=== PATIENT | female | born 1965 | race African-American/Black ===

== ENCOUNTER 2019-12-07 01:06 | Emergency (ER) | payer OTHER ==
--- OUTSIDE RECORDS SUMMARY | 2019-12-07 01:09 | XMS REPORT | Clinical Summary ---
:1965 Author Organization [facility] Address [address] [place] [address] Care Team Providers Name Role Phone Unknown Primary Care Provider Unavailable Allergies No Known Allergies Medications Medication Sig Dispensed Refills Start Date End Date Status lisinopril Take 20 mg by mouth 0 Active (PRINIVIL,ZESTRIL) 20 daily. mg tablet HYDROcodone-acetamino Take 1 tablet by 0 Active phen (NORCO) 10-325 mouth every 6 (six) mg per tablet hours as needed for moderate pain. ALPRAZolam (XANAX) 1 Take 1 mg by mouth 0 Active MG tablet 2 (two) times a day as needed. metoprolol tartrate Take 50 mg by mouth 0 Active (LOPRESSOR) 50 mg daily. tablet Active Problems Problem Noted Date Cerebrovascular accident (CVA) 07/24/2017 Chest pain 01/05/2017 Social History Tobacco Use Types Packs/Day Years Used Date Current Every Day Smoker Cigarettes 0.25 Smokeless Tobacco: Never Used Tobacco Cessation: Ready to Quit: No; Co unseling Given: Yes Alcohol Use Drinks/Week oz/Week Comments No Sex Assigned at Date Recorded Not on file Job Start Date Occupation Industry Not on file Not on file Not on file Travel History Travel Start Travel End No recent travel history available. Last Filed Vital Signs Not on file Plan of Treatment Health Maintenance Due Date Last Done Comments CERVICAL CANCER SCREENING 1988 BREAST CANCER SCREENING 2017 COLONOSCOPY SCREENING 2017 SHINGLES VACCINES (#1) 2017 INFLUENZA VACCINE 01/12/2020 Results Not on fileafter 12/06/2018 Advance Directives For more information, please contact: [phone] Type Date Recorded Patient Edi Consultant Explanati on Advance Directives, Living Will 01/04/2017 8:57 PM and Medical Power of Silviculturist
[2019-12-07] MEDS ORDERED: PANTOPRAZOLE 40 MG INJ ONE (02:16)
[2019-12-07] MEDS ORDERED: NA CHLORIDE 0.9% 1,000 ML ONE (02:16)
[2019-12-07] MEDS ORDERED: ONDANSETRON 4 MG/2 ML VIAL ONE ×2 (02:16→03:11)
[2019-12-07 02:36] LABS: Absolute Lymphocytes (CBC) 3.5 K/uL (0.7-4.9); Basophils % 0.9 % (0-1.3); Hematocrit 40.5 % (36.0-45.0); Lymphocytes % 37.8 % (15.3-44.8); MPV 9.4 fL (7.6-11.3)
[2019-12-07 02:46] LABS: Albumin 3.9 g/dL (3.4-5.0); Bilirubin Direct 0.1 mg/dL (0-0.2); Bilirubin Total 0.4 mg/dL (0.2-1.0); Potassium 4.1 mmol/L (3.5-5.1); Protein, Total 7.9 g/dL (6.4-8.2)
[2019-12-07] MEDS ORDERED: MORPHINE 4 MG/ML SYR ONE (03:59)
--- NOTE | 2019-12-07 04:05 | EDPHYS ---
Physician Documentation [facility] Name: Tyrese Alberto Age: 54 yrs Sex: Female : 1965 Arrival Date: 12/07/2019 Time: 01:09 Bed 5 Private MD: ED Physician Tashi Molina HPI: 12/06 03:33 This 54 yrs old Black Female presents to ER via Ambulatory with complaints of Vomitting tw4 Blood. 03:33 The patient presents to the emergency department with vomiting, 2 times since the onset tw4 of symptoms, described as blood streaked, bright red blood. Onset: The symptoms/episode began/occurred today. Possible causes: unknown. The symptoms are aggravated by nothing. The symptoms are alleviated by nothing. The patient has not experienced similar symptoms in the past. 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 - Social history:: Smoking status: Patient reports the use of cigarette tobacco products, smokes one-half pack cigarettes per day. ROS: 03:33 Constitutional: Negative for fever, chills, and weight loss, Eyes: Negative for injury, tw4 pain, redness, and discharge, Cardiovascular: Negative for chest pain, palpitations, and edema, Respiratory: Negative for shortness of breath, cough, wheezing, and pleuritic chest pain, Back: Negative for injury and pain, MS/Extremity: Negative for injury and deformity, Skin: Negative for injury, rash, and discoloration, Neuro: Negative for headache, weakness, numbness, tingling, and seizure. 03:33 Abdomen/GI: Positive for abdominal pain, vomiting, abdominal cramps, abdominal distension, Negative for diarrhea, constipation, black/tarry stool, rectal pain, bowel incontinence. Exam: 03:33 Constitutional: This is a well developed, well nourished patient who is awake, alert, tw4 and in no acute distress. Head/Face: Normocephalic, atraumatic. Chest/axilla: Normal chest wall appearance and motion. Nontender with no deformity. No lesions are appreciated. Cardiovascular: Regular rate and rhythm with a normal S1 and S2. No gallops, murmurs, or rubs. Normal PMI, no JVD. No pulse deficits. Respiratory: Lungs have equal breath sounds bilaterally, clear to auscultation and percussion. No rales, rhonchi or wheezes noted. No increased work of breathing, no retractions or nasal flaring. Back: No spinal tenderness. No costovertebral tenderness. Full range of motion. Skin: Warm, dry with normal turgor. Normal color with no rashes, no lesions, and no evidence of cellulitis. MS/ Extremity: Pulses equal, no cyanosis. Neurovascular intact. Full, normal range of motion. Neuro: Awake and alert, GCS 15, oriented to person, place, time, and situation. Cranial nerves II-XII grossly intact. Motor strength 5/5 in all extremities. Sensory grossly intact. Cerebellar exam normal. Normal gait. 03:33 Abdomen/GI: Inspection: abdomen appears normal, Bowel sounds: diminished, Palpation: moderate abdominal tenderness, in the epigastric area. Vital Signs: 01:22 BP 166 / 87; Pulse 77; Resp 18; Temp 98.1(O); Pulse Ox 100% on R/A; Weight 77.11 kg lp1 (R); Height 4 ft. 11 in. (149.86 cm); Pain 7/10; 02:42 BP 143 / 98; Pulse 65; Resp 18; Pulse Ox 100% on R/A; rv 03:45 BP 141 / 85; Pulse 69; Resp 19; Pulse Ox 99% ; rr5 04:24 BP 135 / 85; Pulse 65; Resp 16; Temp 97.5; Pulse Ox 99% ; rr5 01:22 Body Mass Index 34.34 (77.11 kg, 149.86 cm) lp1 MDM: 03:33 Differential diagnosis: Nonspecific abd pain, gastritis, appendicitis. Data reviewed: tw4 vital signs, nurses notes. Data interpreted: Pulse oximetry: Interpretation: normal. 04:03 Data reviewed: lab test result(s), CBC, electrolytes. Counseling: I had a detailed tw4 discussion with the patient and/or guardian regarding: the historical points, exam findings, and any diagnostic results supporting the discharge/admit diagnosis, lab results. Special discussion: I discussed with the patient/guardian in detail that at this point there is no indication for admission to the hospital. It is understood, however, that if the symptoms persist or worsen the patient needs to return immediately for re-evaluation. 04:04 Patient medically screened. 12/06 01:18 Order name: Basic Metabolic Panel; Complete Time: 02:48 12/06 02:49 Interpretation: Normal except: CL 110; GLUC 110; GFR 80. 12/06 01:18 Order name: CBC with Diff; Complete Time: 02:48 12/06 02:49 Interpretation: Normal except: MCV 89.9. 12/06 01:18 Order name: Hepatic Function; Complete Time: 02:48 12/06 02:49 Interpretation: Normal except: GLOB 4.0; A/G 1.0. 12/06 01:18 Order name: Lipase; Complete Time: 02:48 12/06 02:49 Interpretation: Within normal limits: LIP 172. 12/06 02:48 Order name: CT Abd/Pelvis - IV Contrast Only 12/06 01:18 Order name: IV Saline Lock; Complete Time: 02:20 12/06 01:18 Order name: Labs collected and sent; Complete Time: 02:20 Administered Medications: 02:19 Drug: ProTONIX 40 mg Route: IVP; Site: left forearm; rv 03:20 Follow up: Response: No adverse reaction rr5 02:20 Drug: Zofran (Ondansetron) 4 mg Route: IVP; Site: left forearm; rv 03:20 Follow up: Response: No adverse reaction rr5 02:20 Drug: NS 0.9% 1000 ml Route: IV; Rate: 1 bolus; Site: left forearm; rv 04:20 Follow up: Response: No adverse reaction; IV Status: Order to discontinue infusion; IV rr5 Intake: 400ml 03:55 Drug: morphine 4 mg {Note: rass 0.} Route: IVP; Site: left antecubital; rr5 04:20 Follow up: Response: No adverse reaction; RASS: Alert and Calm (0) rr5 Disposition: 12/07/19 04:04 Discharged to Home. Impression: Gastritis, unspecified, with bleeding, Dental caries. - Condition is Stable. - Discharge Instructions: Dental Pain, Gastritis, Adult, Gastrointestinal Bleeding. - Prescriptions for Protonix 40 mg Oral Tablet - take 1 tablet by ORAL route once daily; 30 tablet. Tylenol- Codeine #3 300-30 mg Oral Tablet - take 2 tablet by ORAL route every 6 hours As needed; 6 tablet. - Medication Reconciliation Form, Thank You Letter, Antibiotic Education, Prescription Opioid Use form. - Follow up: Private Physician; When: Upon discharge from the Emergency Department; Reason: Recheck today's complaints, Continuance of care, Re-evaluation by your physician. Follow up: Gabriele Rondon MD; When: Upon discharge from the Emergency Department; Reason: Recheck today's complaints, Continuance of care, Re-evaluation by your physician. Follow up: Karan Horta MD; When: Upon discharge from the Emergency Department; Reason: Recheck today's complaints, Continuance of care, Re-evaluation by your physician. Follow up: Hakeem Ramos MD; When: Upon discharge from the Emergency Department; Reason: Recheck today's complaints, Continuance of care, Re-evaluation by your physician. Follow up: Danie Stokes MD; When: Upon discharge from the Emergency Department; Reason: Recheck today's complaints, Continuance of care, Re-evaluation by your physician. Follow up: Guanaco Shankar MD; When: Upon discharge from the Emergency Department; Reason: Recheck today's complaints, Continuance of care, Re-evaluation by your physician. - Problem is new. - Symptoms have improved. Signatures: Dispatcher [employer] EDMS Rain Holden RN RN lp1 Tashi Molina MD MD tw4 Alex Saavedra RN RN Jaison Selby RN RN rr5 Corrections: (The following items were deleted from the chart) 04:02 03:56 NG Tube ordered. tw4 tw4 04:15 04:04 12/07/2019 04:04 Discharged to Home. Impression: Gastritis, unspecified, with tw4 bleeding. Condition is Stable. Forms are Medication Reconciliation Form, Thank You Letter, Antibiotic Education, Prescription Opioid Use. Follow up: Private Physician; When: Upon discharge from the Emergency Department; Reason: Recheck today's complaints, Continuance of care, Re-evaluation by your physician. Problem is new. Symptoms have improved. 4 :22 04:15 12/07/2019 04:04 Discharged to Home. Impression: Gastritis, unspecified, with tw4 bleeding. Condition is Stable. Discharge Instructions: Gastritis, Adult, Gastrointestinal Bleeding. Prescriptions for Protonix 40 mg Oral Tablet - take 1 tablet by ORAL route once daily; 30 tablet. and Forms are Medication Reconciliation Form, Thank You Letter, Antibiotic Education, Prescription Opioid Use. Follow up: Private Physician; When: Upon discharge from the Emergency Department; Reason: Recheck today's complaints, Continuance of care, Re-evaluation by your physician. Follow up: Gabriele Rondon; When: Upon discharge from the Emergency Department; Reason: Recheck today's complaints, Continuance of care, Re-evaluation by your physician. Follow up: Karan Horta; When: Upon discharge from the Emergency Department; Reason: Recheck today's complaints, Continuance of care, Re-evaluation by your physician. Follow up: Hakeem Ramos; When: Upon discharge from the Emergency Department; Reason: Recheck today's complaints, Continuance of care, Re-evaluation by your physician. Follow up: Danie Stokes; When: Upon discharge from the Emergency Department; Reason: Recheck today's complaints, Continuance of care, Re-evaluation by your physician. Follow up: Guanaco Shankar; When: Upon discharge from the Emergency Department; Reason: Recheck today's complaints, Continuance of care, Re-evaluation by your physician. Problem is new. Symptoms have improved. tw4 04:27 04:22 12/07/2019 04:04 Discharged to Home. Impression: Gastritis, unspecified, with rr5 bleeding; Dental caries. Condition is Stable. Discharge Instructions: Gastritis, Adult, Gastrointestinal Bleeding. Prescriptions for Protonix 40 mg Oral Tablet - take 1 tablet by ORAL route once daily; 30 tablet. and Forms are Medication Reconciliation Form, Thank You Letter, Antibiotic Education, Prescription Opioid Use. Follow up: Private Physician; When: Upon discharge from the Emergency Department; Reason: Recheck today's complaints, Continuance of care, Re-evaluation by your physician. Follow up: Gabriele Rondon; When: Upon discharge from the Emergency Department; Reason: Recheck today's complaints, Continuance of care, Re-evaluation by your physician. Follow up: Karan Horta; When: Upon discharge from the Emergency Department; Reason: Recheck today's complaints, Continuance of care, Re-evaluation by your physician. Follow up: Hakeem Ramos; When: Upon discharge from the Emergency Department; Reason: Recheck today's complaints, Continuance of care, Re-evaluation by your physician. Follow up: Danie Stokes; When: Upon discharge from the Emergency Department; Reason: Recheck today's complaints, Continuance of care, Re-evaluation by your physician. Follow up: Guanaco Shankar; When: Upon discharge from the Emergency Department; Reason: Recheck today's complaints, Continuance of care, Re-evaluation by your physician. Problem is new. Symptoms have improved. tw4
--- NOTE | 2019-12-07 04:05 | ER ---
Nurse's Notes [facility] Name: Tyrese Alberto Age: 54 yrs Sex: Female : 1965 Arrival Date: 12/07/2019 Time: 01:09 Bed 5 Private MD: Diagnosis: Gastritis, unspecified, with bleeding;Dental caries Presentation: 12/06 01:17 Chief complaint: Patient states: States abdominal distention x 3 months, seen by doctor lp1 but unable to follow up due to office closed due to COVID-19; States vomited x2 tonight with bright red blood. Coronavirus screen: Proceed with normal triage. Ebola Screen: No symptoms or risks identified at this time. Risk Assessment: Do you want to hurt yourself or someone else? Patient reports no desire to harm self or others. Onset of symptoms was December 07, 2019. 01:17 Method Of Arrival: Ambulatory lp1 01:17 Acuity: [place] 3 lp1 01:22 Initial Sepsis Screen: Does the patient meet any 2 criteria? No. Patient's initial lp1 sepsis screen is negative. Does the patient have a suspected source of infection? No. Patient's initial sepsis screen is negative. 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 - Social history:: Smoking status: Patient reports the use of cigarette tobacco products, smokes one-half pack cigarettes per day. Screenin:22 Abuse screen: Denies threats or abuse. Denies injuries from another. Nutritional lp1 screening: No deficits noted. Tuberculosis screening: No symptoms or risk factors identified. Fall Risk None identified. Assessment: 02:10 General: Appears uncomfortable, Behavior is calm, cooperative. rv 02:10 Pain: Complains of pain in abdomen. Neuro: Level of Consciousness is awake, alert, rv obeys commands, Oriented to person, place, time, situation. Cardiovascular: Patient's skin is warm and dry. Respiratory: Airway is patent Respiratory effort is even, unlabored, Breath sounds are clear bilaterally. GI: Abdomen is round distended, Reports nausea, vomiting. 03:55 Reassessment: Patient appears in no apparent distress at this time. complaining of rr5 abdominal pain ED provider aware with order made and carried out. 04:23 Reassessment: Patient appears in no apparent distress at this time. Patient is alert, rr5 oriented x 3, equal unlabored respirations, skin warm/dry/pink. discharge instruction given and explained results and plan of care explained by ED provider. verbalized understanding. 04:25 Reassessment: complaint of toothache wants prescription for the pain, ED provider aware rr5 prescription made and given. Vital Signs: 01:22 BP 166 / 87; Pulse 77; Resp 18; Temp 98.1(O); Pulse Ox 100% on R/A; Weight 77.11 kg lp1 (R); Height 4 ft. 11 in. (149.86 cm); Pain 7/10; 02:42 BP 143 / 98; Pulse 65; Resp 18; Pulse Ox 100% on R/A; rv 03:45 BP 141 / 85; Pulse 69; Resp 19; Pulse Ox 99% ; rr5 04:24 BP 135 / 85; Pulse 65; Resp 16; Temp 97.5; Pulse Ox 99% ; rr5 01:22 Body Mass Index 34.34 (77.11 kg, 149.86 cm) lp1 ED Course: 01:09 Patient arrived in ED. cl3 01:17 Tashi Molina MD is Attending Physician. tw4 01:21 Triage completed. lp1 01:22 Arm band placed on. lp1 01:46 Alex Saavedra, ALEKSANDAR is Primary Nurse. rv 02:10 Inserted saline lock: 20 gauge in left antecubital area, using aseptic technique. Blood rv collected. 02:10 No provider procedures requiring assistance completed. rv 02:42 Patient has correct armband on for positive identification. Pulse ox on. NIBP on. rv 03:29 CT Abd/Pelvis - IV Contrast Only In Process Unspecified. EDMS 04:15 Gabriele Rondon MD is Referral Physician. tw4 04:15 Karan Horta MD is Referral Physician. tw4 04:15 Hakeem Ramos MD is Referral Physician. tw4 04:15 Danie Stokes MD is Referral Physician. tw4 04:15 Guanaco Shankar MD is Referral Physician. tw4 04:24 IV discontinued, intact, bleeding controlled, No redness/swelling at site. Pressure rr5 dressing applied. Administered Medications: 02:19 Drug: ProTONIX 40 mg Route: IVP; Site: left forearm; rv 03:20 Follow up: Response: No adverse reaction rr5 02:20 Drug: Zofran (Ondansetron) 4 mg Route: IVP; Site: left forearm; rv 03:20 Follow up: Response: No adverse reaction rr5 02:20 Drug: NS 0.9% 1000 ml Route: IV; Rate: 1 bolus; Site: left forearm; rv 04:20 Follow up: Response: No adverse reaction; IV Status: Order to discontinue infusion; IV rr5 Intake: 400ml 03:55 Drug: morphine 4 mg {Note: rass 0.} Route: IVP; Site: left antecubital; rr5 04:20 Follow up: Response: No adverse reaction; RASS: Alert and Calm (0) rr5 Intake: 04:20 IV: 400ml; Total: 400ml. rr5 Outcome: 04:04 Discharge ordered by . tw4 04:24 Discharged to home ambulatory. rr5 04:24 Condition: stable 04:24 Discharge instructions given to patient, Instructed on discharge instructions, follow up and referral plans. medication usage, Demonstrated understanding of instructions, follow-up care, medications, Prescriptions given X 2. 04:27 Patient left the ED. rr5 Signatures: Dispatcher [employer] EDRain King RN RN lp1 Tashi Molina MD MD tw4 Alex Saavedra RN RN Jaison Selby RN RN rr5 Agnelica Blanchard cl3
[2019-12-07 04:44] VITALS: O2SAT 99
[2019-12-07 04:45] VITALS: BP 135/85; TEMP 97.5
--- NOTE | 2019-12-07 18:40 | RAD REPORT ---
EXAM DESCRIPTION: CT - Abdomen Pelvis W Contrast - 12/07/2019 5:21 am CLINICAL HISTORY: Abdominal distention for three months. COMPARISON: None. TECHNIQUE: Axial CT imaging of the abdomen and pelvis performed with intravenous contrast. Reformatt ed coronal and sagittal images reviewed. A dose reduction technique was utilized with automated exposure control according to patient size. FINDINGS: Lung bases are clear. Heart is normal in size. Normal liver size and contour. Benign appearing cysts are present within the inferior medial right lo be. Largest is 3.3 cm. A few scattered smaller cysts are present within the left lobe. No biliary dil atation. Moderate fatty liver infiltration. Normal gallbladder, spleen, pancreas, adrenal glands. Sma ll right extrarenal pelvis. Kidneys are otherwise normal. Normal aorta and inferior vena cava caliber. Moderate aortic atherosclerosis. There is a retroaortic left renal vein. Mesenteric vessels appear normal. Unremarkable stomach, small bowel loops in the left upper and right lower quadrant appendix. Mild div erticulosis in the descending colon. No diverticulitis. No mesenteric adenopathy. No ascites. Unremarkable decompressed bladder. Uterus contains a fundal 3.3 cm fibroid. Normal left ovary. Right ovary is nonvisualized. No pelvic free fluid or adenopathy. Moderate lower thoracic and lumbar spondylosis. Intact bony pelvis. Normal hips. IMPRESSION: 1. Moderate fatty liver infiltration. Benign hepatic cysts. 2. Mild descending colon diverticulosis. No diverticulitis. 3. Fundal fibroid. Electronically signed by: Delores James DO 12/07/2019 3:40 AM CDT Due to temporary technical issues with the PACS/Fluency reporting system, reports are being signed by the in house radiologist without review as a courtesy to ensure prompt reporting. The interpreting r adiologist is fully responsible for the content of the report.
== END 2019-12-07 04:27 | disposition home or self-care (01) ==
LOC: ER 01:06
DX: K29.70 Gastritis, unspecified, without bleeding (principal); K02.9 Dental caries, unspecified; I10 Essential (primary) hypertension
CPT/HCPCS: 96361; 85025; 80048; 36415; 80076; 83690; 74177; 96375; 96374; 99284; Q9967; C9113; J7030; J2405 ×2

== ENCOUNTER 2020-04-18 23:34 | Observation (INO) | payer OTHER ==
--- OUTSIDE RECORDS SUMMARY | 2020-04-18 23:36 | XMS REPORT | Clinical Summary ---
:1965 Author Organization [facility] Address [address] [place] [address] Care Team Providers Name Role Phone Unknown Primary Care Provider Unavailable Allergies No Known Active Allergies Medications Medication Sig Dispensed Refills Start [...] Cerebrovascular accident (CVA) 07/24/2017 Chest pain 01/05/2017 Surgical History Surgery Date Site/Laterality Comments SECTION Medical History Medical History Date Comments Hypertension Stroke (HCC) High cholesterol Social History Tobacco Use Types Packs/Day Years Used Date Current Every Day Smoker Cigarettes 0.25 Smokeless Tobacco: Never Used Tobacco Cessation: Ready to Quit: No; Co unseling Given: Yes Alcohol Use Drinks/Week oz/Week Comments No Sex Assigned at Date Recorded Not on file Last Filed Vital Signs Not on file Plan of Treatment Health Maintenance Due Date Last Done Comments CERVICAL CANCER SCREENING 1988 BREAST CANCER SCREENING 2017 COLONOSCOPY SCREENING 2017 SHINGLES VACCINES (#1) 2017 INFLUENZA VACCINE 01/12/2020 Results Not on fileafter 04/18/2019 Advance Directives For more information, please contact: [phone] Type Date Recorded 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
[2020-04-19] MEDS ORDERED: ASPIRIN 81 MG CHEWABLE TABLET ONE (00:23)
[2020-04-19 00:25] LABS: Absolute Lymphocytes (CBC) 1.8 K/uL (0.7-4.9); Basophils % 0.8 % (0-1.3); Hematocrit 38.4 % (36.0-45.0); Lymphocytes % 37.7 % (15.3-44.8); MPV 9.5 fL (7.6-11.3); RBC Red Blood Cell Count 4.32 M/uL (3.86-4.86)
[2020-04-19 00:27] LABS: Protime INR 0.97
--- NOTE | 2020-04-19 00:29 | EDPHYS ---
Physician Documentation [facility] Name: Tyrese Alberto Age: 54 yrs Sex: Female : 1965 Arrival Date: 04/18/2020 Time: 23:37 Bed 16 Private MD: ED Physician Tashi Molina HPI: 04/18 23:50 This 54 yrs old Black Female presents to ER via Unassigned with complaints of Chest snw Pain. 23:50 Onset: The symptoms/episode began/occurred acutely. Associated signs and symptoms: snw Pertinent positives: shortness of breath, dizziness and bodyaches. The patient has not experienced similar symptoms in the past. Daughter diagnosed and hospitalized with CoVid. Historical: - Allergies: 23:40 No Known Allergies; jb4 - Home Meds: 23:40 Bystolic Oral [Active]; lisinopril Oral [Active]; Lorazepam Oral [Active]; jb4 - PMHx: 23:40 Hypertension; fatty liver; High Cholesterol; jb4 - PSHx: 23:40 ; jb4 - Immunization history:: Adult Immunizations up to date. - Social history:: Smoking status: Patient denies any tobacco usage or history of. Patient/guardian denies using alcohol, street drugs. ROS: 23:50 Eyes: Negative for injury, pain, redness, and discharge, ENT: Negative for injury, snw pain, and discharge, Neck: Negative for injury, pain, and swelling. 23:50 Abdomen/GI: Negative for abdominal pain, nausea, vomiting, diarrhea, and constipation, Back: Negative for injury and pain, : Negative for injury, bleeding, discharge, and swelling, MS/Extremity: Negative for injury and deformity, Skin: Negative for injury, rash, and discoloration. 23:50 Constitutional: Positive for body aches, malaise. 23:50 Cardiovascular: Positive for chest pain, of the mid-sternal area and left breast, Negative for edema, orthopnea, paroxysmal nocturnal dyspnea. 23:50 Respiratory: Positive for a little shortness of breath. 23:50 Neuro: Positive for dizziness. Exam: 23:49 Eyes: Pupils equal round and reactive to light, extra-ocular motions intact. Lids and snw lashes normal. Conjunctiva and sclera are non-icteric and not injected. Cornea within normal limits. Periorbital areas with no swelling, redness, or edema. ENT: Nares patent. No nasal discharge, no septal abnormalities noted. Tympanic membranes are normal and external auditory canals are clear. Oropharynx with no redness, swelling, or masses, exudates, or evidence of obstruction, uvula midline. Mucous membranes moist. Neck: Trachea midline, no thyromegaly or masses palpated, and no cervical lymphadenopathy. Supple, full range of motion without nuchal rigidity, or vertebral point tenderness. No Meningismus. Chest/axilla: Normal chest wall appearance and motion. Nontender with no deformity. No lesions are appreciated. 23:49 Respiratory: Lungs have equal breath sounds bilaterally, clear to auscultation and percussion. No rales, rhonchi or wheezes noted. No increased work of breathing, no retractions or nasal flaring. Abdomen/GI: Soft, non-tender, with normal bowel sounds. No distension or tympany. No guarding or rebound. No evidence of tenderness throughout. Back: No spinal tenderness. No costovertebral tenderness. Full range of motion. MS/ Extremity: Pulses equal, no cyanosis. Neurovascular intact. Full, normal range of motion. Neuro: Awake and alert, GCS 15, oriented to person, place, time, and situation. Cranial nerves II-XII grossly intact. Motor strength 5/5 in all extremities. Sensory grossly intact. Cerebellar exam normal. Normal gait. Psych: Awake, alert, with orientation to person, place and time. Behavior, mood, and affect are within normal limits. 23:49 Constitutional: The patient appears alert, anxious, flushed 23:49 Head/face: Noted is flushed. 23:49 Cardiovascular: Rate: tachycardic, Rhythm: regular, Pulses: no pulse deficits are appreciated, Heart sounds: normal. 23:49 Skin: Appearance: Color: flushed. Vital Signs: 23:40 BP 174 / 95; Pulse 95; Resp 16; Temp 98.5(O); Pulse Ox 100% on R/A; Weight 79.38 kg jb4 (R); Height 4 ft. 11 in. (149.86 cm) (R); Pain 8/10; 1107 00:45 BP 159 / 108; Pulse 84; Resp 22; Pulse Ox 100% on R/A; jb4 01:30 BP 180 / 92; Pulse 86; Resp 22; Pulse Ox 98% on R/A; jb4 04/18 23:40 Body Mass Index 35.35 (79.38 kg, 149.86 cm) jb4 MDM: 04/18 23:46 Patient medically screened. tw4 04/19 00:27 Data reviewed: vital signs, nurses notes. Data interpreted: Pulse oximetry: on room air snw is 100 %. Interpretation: normal. Counseling: I had a detailed discussion with the patient and/or guardian regarding: the historical points, exam findings, and any diagnostic results supporting the discharge/admit diagnosis, lab results, radiology results, the need for further work-up and treatment in the hospital. Physician consultation: Julián Laura was called at 00:28, was contacted at 00:28, regarding admission, to the telemetry unit. and will see patient. 04/18 23:47 Order name: Basic Metabolic Panel; Complete Time: 00:39 tw4 04/18 23:47 Order name: CBC with Diff; Complete Time: 00:27 tw4 04/18 23:47 Order name: LFT's; Complete Time: 00:39 tw4 04/18 23:47 Order name: Magnesium; Complete Time: 00:39 tw4 04/18 23:47 Order name: NT PRO-BNP; Complete Time: 00:39 tw4 04/18 23:47 Order name: PT-INR; Complete Time: 00:32 tw4 04/18 23:47 Order name: Troponin (emerg Dept Use Only); Complete Time: 00:39 tw4 04/18 23:53 Order name: Ferritin snw 04/19 00:00 Order name: COVID-19 snw 04/19 00:15 Order name: Ferritin; Complete Time: 00:39 EDMS 04/19 00:15 Order name: D-Dimer; Complete Time: 00:32 EDMS 04/19 05:38 Order name: Lipid Profile EDMS 04/18 23:47 Order name: XRAY Chest (1 view) tw4 04/18 23:47 Order name: EKG; Complete Time: 23:47 tw4 04/18 23:47 Order name: Cardiac monitoring; Complete Time: 23:56 tw4 04/18 23:47 Order name: EKG - Nurse/Tech; Complete Time: 23:56 tw4 04/18 23:47 Order name: IV Saline Lock; Complete Time: 00:14 tw4 04/18 23:47 Order name: Labs collected and sent; Complete Time: 00:14 tw4 04/18 23:47 Order name: O2 Per Protocol; Complete Time: 23:56 tw4 04/18 23:47 Order name: O2 Sat Monitoring; Complete Time: 23:56 tw4 04/19 00:33 Order name: CT Chest For PE Angio snw 04/19 00:57 Order name: CT Abd/Pelvis - IV Contrast Only snw 04/19 06:07 Order name: Troponin I EDMS 04/19 07:29 Order name: SARS-COV-2 RT PCR EDMS 04/19 08:27 Order name: Troponin I EDSC 04/19 12:07 Order name: Troponin I EDSC 04/19 15:50 Order name: EDSC EC/06 23:45 Rate is 93 beats/min. Rhythm is regular. QRS [place] is Normal. [place] interval is normal. QRS snw interval is normal. T waves are Inverted in leads I, aVL, V4, V5. Clinical impression: NSR w/ Non-specific ST/T Changes. Administered Medications: 04/19 00:14 Drug: Aspirin Chewable Tablet 324 mg Route: PO; jb4 Disposition: 04/19/20 00:29 Hospitalization ordered by Julián Laura for Observation. Preliminary diagnosis is Chest pain, unspecified. - Bed requested for [facility] ER HOLD. - Status is Observation. hb - Condition is Stable. - Problem is new. - Symptoms are unchanged. Addendum: 04/21/2020 07:02 Co-signature as Attending Physician, Tashi Molina MD I agree with the assessment and t w4 plan of care. Signatures: Dispatcher [employer] EDSC Eleni Ortega RN Ro Queen RN Mary Staples, COAT AGENT-C COAT AGENT-Nathalyw Yuliet Gooden, ALEKSANDAR HUERTAS Yordan Smith RN RN jb4 Tashi Molina MD MD tw4 Corrections: (The following items were deleted from the chart) 04/19 00:14 04/18 23:54 D-DIMER+COAG.LAB.BRZ ordered. EDSC EDSC 04/19 00:15 11/06 23:54 Ferritin ordered. EDSC EDMS 04/19 01:18 00:29 Hospitalization Ordered by Julián Laura for Observation. Preliminary diagnosis mw is Chest pain, unspecified. Bed requested for Telemetry/MedSurg (observation). Status is Observation. Condition is Stable. Problem is new. Symptoms are unchanged. snw 12:19 01:18 04/19/2020 00:29 Hospitalization Ordered by Julián Laura for Observation. dw Preliminary diagnosis is Chest pain, unspecified. Bed requested for [facility] ER HOLD. Status is Observation. Condition is Stable. Problem is new. Symptoms are unchanged. mw 12:19 12:19 04/19/2020 00:29 Hospitalization Ordered by Julián Laura for Observation. dw Preliminary diagnosis is Chest pain, unspecified. Bed requested for Intensive Care Unit. Status is Observation. Condition is Stable. Problem is new. Symptoms are unchanged. dw 14:24 12:19 04/19/2020 00:29 Hospitalization Ordered by Julián Laura for Observation. hb Preliminary diagnosis is Chest pain, unspecified. Bed requested for Intensive Care Unit. Status is Observation. Condition is Stable. Problem is new. Symptoms are unchanged. dw 14:24 14:24 04/19/2020 00:29 Hospitalization Ordered by Julián Laura for Observation. hb Preliminary diagnosis is Chest pain, unspecified. Bed requested for [facility] ER HOLD. Status is Observation. Condition is Stable. Problem is new. Symptoms are unchanged. hb 16:55 14:24 04/19/2020 00:29 Hospitalization Ordered by Julián Laura for Observation. hb Preliminary diagnosis is Chest pain, unspecified. Bed requested for [facility] ER HOLD. Status is Observation. Condition is Stable. Problem is new. Symptoms are unchanged. hb
--- NOTE | 2020-04-19 00:29 | ER ---
Nurse's Notes [facility] Name: Tyrese Alberto Age: 54 yrs Sex: Female : 1965 Arrival Date: 04/18/2020 Time: 23:37 Bed 16 Private MD: Diagnosis: Chest pain, unspecified Presentation: 04/18 23:40 Chief complaint: Patient states: I am having chest pain, headache, and shortness of jb4 breath that started around 6pm. I took tylenol 4-5 hours ago. My daughter was here earlier she tested positive for covid-19. 23:40 Coronavirus screen: Client denies travel out of the [place] in the last 14 days. Client jb4 presents with at least one sign or symptom that may indicate coronavirus-19. Standard/surgical mask placed on the client. Provider contacted for isolation considerations. Ebola Screen: No symptoms or risks identified at this time. Initial Sepsis Screen: Does the patient meet any 2 criteria? HR > 90 bpm. Yes Does the patient have a suspected source of infection? No. Patient's initial sepsis screen is negative. Risk Assessment: Do you want to hurt yourself or someone else? Patient reports no desire to harm self or others. Onset of symptoms was April 18, 2020. Transition of care: patient was not received from another setting of care. 23:40 Method Of Arrival: Ambulatory jb4 23:40 Acuity: [place] 3 jb4 Historical: - Allergies: 23:40 No Known Allergies; jb4 - Home Meds: 23:40 Bystolic Oral [Active]; lisinopril Oral [Active]; Lorazepam Oral [Active]; jb4 - PMHx: 23:40 Hypertension; fatty liver; High Cholesterol; jb4 - PSHx: 23:40 ; jb4 - Immunization history:: Adult Immunizations up to date. - Social history:: Smoking status: Patient denies any tobacco usage or history of. Patient/guardian denies using alcohol, street drugs. Screenin:40 Abuse screen: Denies threats or abuse. Nutritional screening: No deficits noted. jb4 Tuberculosis screening: No symptoms or risk factors identified. Fall Risk None identified. Assessment: 23:40 General: Appears in no apparent distress. uncomfortable, Behavior is calm, cooperative, jb4 appropriate for age. Pain: Complains of pain in chest and right leg, head Pain does not radiate. Pain currently is 8 out of 10 on a pain scale. Quality of pain is described as burning, Pain began 1800. Neuro: Level of Consciousness is awake, alert, obeys commands, Oriented to person, place, time, situation. Cardiovascular: Patient's skin is warm and dry. Respiratory: Airway is patent Respiratory effort is even, unlabored, Respiratory pattern is regular, symmetrical. GI: No signs and/or symptoms were reported involving the gastrointestinal system. : No signs and/or symptoms were reported regarding the genitourinary system. EENT: No signs and/or symptoms were reported regarding the EENT system. Derm: Skin is intact, Skin is dry, Skin is normal, Skin temperature is warm. Musculoskeletal: Circulation, motion, and sensation intact. Range of motion: intact in all extremities. 04/19 00:45 Reassessment: Patient appears in no apparent distress at this time. Patient and/or jb4 family updated on plan of care and expected duration. Pain level reassessed. Patient is alert, oriented x 3, equal unlabored respirations, skin warm/dry/pink. Dr. Laura is at the bedside. 01:18 Reassessment: Patient appears in no apparent distress at this time. Patient and/or jb4 family updated on plan of care and expected duration. Pain level reassessed. Patient is alert, oriented x 3, equal unlabored respirations, skin warm/dry/pink. PT is back from CT. Vital Signs: 04/18 23:40 BP 174 / 95; Pulse 95; Resp 16; Temp 98.5(O); Pulse Ox 100% on R/A; Weight 79.38 kg jb4 (R); Height 4 ft. 11 in. (149.86 cm) (R); Pain 8/10; 04/19 00:45 BP 159 / 108; Pulse 84; Resp 22; Pulse Ox 100% on R/A; jb4 01:30 BP 180 / 92; Pulse 86; Resp 22; Pulse Ox 98% on R/A; jb4 04/18 23:40 Body Mass Index 35.35 (79.38 kg, 149.86 cm) 4 ED Course: 04/18 23:37 Patient arrived in ED. bp1 23:40 Arm band placed on right wrist. jb4 23:40 Patient has correct armband on for positive identification. Placed in gown. Bed in low jb4 position. Call light in reach. Side rails up X 1. market research coordinator on. Pulse ox on. NIBP on. 23:46 Tashi Molina MD is Attending Physician. tw4 23:51 Yordan Smith, ALEKSANDAR is Primary Nurse. jb4 23:53 Mary Marinelli FNP-C is [facility]. snw 23:53 Tashi Molina MD is Attending Physician. snw 23:54 Triage completed. jb4 07 00:00 Initial lab(s) drawn, by me, sent to lab. Inserted saline lock: 18 gauge in left jb4 forearm, using aseptic technique. Blood collected. Patient maintains SpO2 saturation greater than 95% on room air. 00:29 Julián Laura is Hospitalizing Provider. snw 00:32 XRAY Chest (1 view) In Process Unspecified. EDMS 00:32 Notified Nurse Practitioner and/or Physician Education Program Associate of a critical lab result(s), cr4 D-dimer 653. 01:34 CT Chest For PE Angio In Process Unspecified. EDMS 01:34 CT Abd/Pelvis - IV Contrast Only In Process Unspecified. EDMS 01:58 No provider procedures requiring assistance completed. Patient admitted, IV remains in jb4 place. Administered Medications: 00:14 Drug: Aspirin Chewable Tablet 324 mg Route: PO; jb4 Outcome: 00:29 Decision to Hospitalize by Provider. snw 01:58 Admitted to ER Hold. Please see [facility] for further documentation. jb4 01:58 Condition: stable 01:58 Discharge instructions given to patient, Instructed on the need for admit, Demonstrated understanding of instructions. 16:55 Patient left the ED. Signatures: Dispatcher [employer] EDMS Mary Marinelli FNP-C HYDRO PLANT SITE MANAGER-Csnw Jennie Monk RN RN cr4 Yuliet Gooden RN RN Yordan Smith, ALEKSANDAR HUERTAS jb4 Tashi Molina MD MD tw4 Adelaide Timmons bp1
[2020-04-19 00:38] LABS: ALT/SGPT 48 U/L (12-78); AST/SGOT 28 U/L (15-37); Albumin 3.5 g/dL (3.4-5.0); Alkaline Phosphatase 67 U/L (45-117); BUN Blood Urea Nitrogen 10 mg/dL (7-18); Bicarbonate 27 mmol/L (21-32); Bilirubin Direct < 0.1 mg/dL (0-0.2); Bilirubin Total 0.2 mg/dL (0.2-1.0); Ferritin 293.6 ng/mL (8-388); Glucose Level 91 mg/dL (74-106); NT PRO-BNP 34 pg/mL (<125); Potassium 3.4 mmol/L (3.5-5.1); Protein, Total 7.5 g/dL (6.4-8.2); Sodium Level 142 mmol/L (136-145); Troponin (Emerg Dept Use Only) < 0.02 ng/mL (0.0-0.045)
--- NOTE | 2020-04-19 01:37 | P.HP ---
Certification for Inpatient Patient admitted to: Observation With expected LOS: <2 Midnights Practitioner: I am a practitioner with admitting privileges, knowledge of patient current condition, hospital course, and medical plan of care. Services: Services provided to patient in accordance with Admission requirements found in Title 42 Section 412.3 of the Code of Federal Regulations Patient History Date of Service: 04/19/20 Reason for admission: Chest pain History of Present Illness: 54-year-old woman with a history of hypertension, and hyperlipidemia presented emergency department with a complaint of chest pain of onset yesterday. Patient also report right groin pain that radiates to her back, worse with touching her groin. She also complains of fatigue. She denies any fever. [facility] Stated her daughter tested positive for COVID 19 1 week ago and is currently hospitalized here. EKG done in the emergency department demonstrates T-wave inversions in the lateral leads. Chest x-ray is unremarkable. Her D-dimer was moderately elevated. CTA thorax was performed and result is pending. Patient is placed under observation for chest pain rule out her cardiac risk factors which include hypertension, hyperlipidemia and smoking. 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 Physical Examination - Physical Exam General: Alert, In no apparent distress, Oriented x3 HEENT: Atraumatic, Mucous membr. moist/pink, Sclerae nonicteric Neck: Supple, JVD not distended Respiratory: Clear to auscultation bilaterally, Normal air movement Cardiovascular: No edema, Regular rate/rhythm, Normal S1 S2 Capillary refill: <2 Seconds Gastrointestinal: Normal bowel sounds, Soft and benign, No tenderness Musculoskeletal: No swelling, No erythema, Tenderness (right groin and upper thigh.) Neurological: Normal strength at 5/5 x4 extr, Cranial nerves 3-12 intact - Studies Laboratory Data (last 24 hrs) 04/18/20 23:59: PT 11.5, INR 0.97 04/18/20 23:59: WBC 4.7, Hgb 12.7, Hct 38.4, Plt Count 250 04/18/20 23:59: Sodium 142, Potassium 3.4 L, BUN 10, Creatinine 0.65, Glucose 91, Magnesium 2.0, Total Bilirubin 0.2, AST 28, ALT 48, Alkaline Phosphatase 67 Assessment and Plan - Problems (Diagnosis) (1) Elevated d-dimer Current Visit: Yes Status: Acute (2) Groin pain Current Visit: Yes Status: Acute (3) Chest pain Current Visit: No Status: Acute (4) Hypertension Current Visit: No Status: Acute - Plan Place under observation. Trend troponin IV morphine p.r.n. for pain Aspirin 81 mg daily Further management pending troponin result. Screen for COVID 19 given possible exposure. Follow CTA thorax and CT abdomen/pelvis results. Start Metoprolol. - Advance Directives Does patient have a Living Will: No Does patient have a Durable POA for Healthcare: No
[2020-04-19] MEDS ORDERED: NITROGLYCERIN 0.4 MG/TAB SL PRN (03:23)
[2020-04-19] MEDS ORDERED: MORPHINE 4 MG/ML SYR IV PRN (03:23)
[2020-04-19] MEDS ORDERED: MORPHINE 2 MG/ML SYR ONE ×4 (03:39→16:05)
[2020-04-19] MEDS: MORPHINE 2 MG/ML SYR IV PRN ×4 (04:00→16:30)
[2020-04-19 04:29] VITALS: BMI 35.3
[2020-04-19] MEDS ORDERED: METOPROLOL TAR 25 MG TAB ONE (05:19)
[2020-04-19] MEDS ORDERED: METOPROLOL TAR 25 MG TAB PO SCH (06:00)
[2020-04-19] MEDS: BISACODYL 10 MG RECTAL SUPP PR ONE ×2 (06:01→06:53)
[2020-04-19] MEDS ORDERED: ASPIRIN EC 81 MG TAB PO ONE (08:33)
[2020-04-19] MEDS ORDERED: ENOXAPARIN 40 MG/0.4 ML SQ ONE (08:34)
--- NOTE | 2020-04-19 08:54 | RAD REPORT ---
EXAM DESCRIPTION: [place] Single View04/19/2020 12:31 am CLINICAL HISTORY: Chest pain COMPARISON: none FINDINGS: Mild left basilar opacity. The right lung appears clear of acute infiltrate. The heart is normal size IMPRESSION: Mild left basilar opacity may represent atelectasis or pneumonia
[2020-04-19] MEDS ORDERED: ASPIRIN EC 81 MG TAB PO SCH (09:00)
[2020-04-19] MEDS ORDERED: ENOXAPARIN 40 MG/0.4 ML SQ SCH (09:00)
[2020-04-19] MEDS ORDERED: HYDROCORTISONE SUC 100 MG INJ IV ONE (13:19)
--- NOTE | 2020-04-19 15:49 | RAD REPORT ---
EXAM DESCRIPTION: USExtremity Venous Uni Ltd04/19/2020 3:27 pm CLINICAL HISTORY: Right leg pain . COMPARISON: None. FINDINGS: Right common femoral, superficial femoral, popliteal and right posterior tibial veins are compressible and demonstrate augmentation. Doppler demonstrates good flow. IMPRESSION: No evidence of deep venous thrombosis involving the right lower extremity.
--- NOTE | 2020-04-19 16:03 | P.DS ---
Discharge Date: 04/19/20 Disposition: ROUTINE DISCHARGE Discharge Condition: GOOD Reason for Admission: Chest pain Brief History of Present Illness: Patient is a 54-year-old female who came into the hospital with shortness of breath. Patient was found to have COVID-19 Pneumonia. She was admitted for further evaluation. CT imaging was negative. Additional diagnostic studies were negative as well. Hospital Course: Patient will be discharged on steroids and antibiotic with outpt follow up. Patient is to follow up with PCP and pulmonary in 1-2 weeks. Patient is notified that she could clinically get worse and is to report back to the emergency room if her symptoms worsen. Vital Signs/Physical Exam: Temp Pulse Resp BP Pulse Ox 98.7 F 79 16 132/82 100 04/19/20 12:00 04/19/20 12:00 04/19/20 12:45 04/19/20 12:00 04/19/20 12:45 General: Alert, In no apparent distress, Oriented x3 Laboratory Data at Discharge: WBC 4.7 K/uL (4.3-10.9) 04/18/20 23:59 Hgb 12.7 g/dL (12.0-15.0) 04/18/20 23:59 Hct 38.4 % (36.0-45.0) 04/18/20 23:59 Plt Count 250 K/uL (152-406) 04/18/20 23:59 PT 11.5 SECONDS (9.5-12.5) 04/18/20 23:59 INR 0.97 04/18/20 23:59 Sodium 142 mmol/L (136-145) 04/18/20 23:59 Potassium 3.4 mmol/L (3.5-5.1) L 04/18/20 23:59 BUN 10 mg/dL (7-18) 04/18/20 23:59 Creatinine 0.65 mg/dL (0.55-1.3) 04/18/20 23:59 Glucose 91 mg/dL (74-106) 04/18/20 23:59 Magnesium 2.0 mg/dL (1.8-2.4) 04/18/20 23:59 Total Bilirubin 0.2 mg/dL (0.2-1.0) 04/18/20 23:59 AST 28 U/L (15-37) 04/18/20 23:59 ALT 48 U/L (12-78) 04/18/20 23:59 Alkaline Phosphatase 67 U/L (45-117) 04/18/20 23:59 Troponin I Cancelled 04/19/20 23:23 Triglycerides 154 mg/dL (<150) H 04/19/20 04:59 Cholesterol 184 mg/dL (<200) 04/19/20 04:59 HDL Cholesterol 43 mg/dL (40-60) 04/19/20 04:59 Cholesterol/HDL Ratio 4.28 04/19/20 04:59 Home Medications: Albuterol Inhaler [Ventolin Inhaler*] 2 puff IH Q6H PRN #1 hfa.aer.ad 04/19/20 Aspirin [Aspirin EC 81 MG] 81 mg PO DAILY #30 tablet. 04/19/20 Atorvastatin Calcium [Lipitor] 40 mg PO BEDTIME 04/19/20 Azithromycin Tab [Zithromax*] 250 mg PO ZPAK #1 urbano 04/19/20 Codeine/APAP [Tylenol W/Codeine #3 tab] 1 tab PO Q6HP PRN #30 tab 04/19/20 Lubiprostone [Amitiza*] 24 mcg PO BID 04/19/20 Pantoprazole [Protonix Tab*] 40 mg PO BID 04/19/20 Trazodone [Desyrel*] 50 mg PO BEDTIME 04/19/20 atenoloL [Atenolol] 50 mg PO DAILY 04/19/20 clonazePAM [Clonazepam] 0.5 mg PO BID 04/19/20 predniSONE [Prednisone*] 20 mg PO DAILY #5 tab 04/19/20 New Medications: Aspirin [Aspirin EC 81 MG] 81 mg PO DAILY #30 tablet. predniSONE [Prednisone*] 20 mg PO DAILY #5 tab Codeine/APAP [Tylenol W/Codeine #3 tab] 1 tab PO Q6HP PRN #30 tab PRN Reason: Pain Albuterol Inhaler [Ventolin Inhaler*] 2 puff IH Q6H PRN #1 hfa.aer.ad PRN Reason: Shortness Of Breath Azithromycin Tab [Zithromax*] 250 mg PO ZPAK #1 urbano Patient Discharge Instructions: OK TO DC IV AND DC HOME IF VENOUS DOPPLER IS NEGATIVE. MEDICATIONS WERE CALLED INTO [facility]. FOLLOW-UP WITH PRIMARY CARE PROVIDER IN 1-2 WEEKS. FOLLOW-UP WITH CARDIOLOGY IN 2-4 WEEKS. RETURN TO THE ER IF SYMPTOMS WORSEN. CALL or TEXT DR. MANN AT [phone] IF ANY QUESTIONS REGARDING HOSPITAL STAY. PLEASE CALL THE FLOOR AT [phone] IF ANY MEDICATION OR NURSING QUESTIONS. Diet: AHA Activity: Fall precautions Followup: OOT,OOT [Primary Care Provider] - Time spent managing pt's care (in minutes): 35
[2020-04-19 16:05] VITALS: BP 134/82; TEMP 98.4
[2020-04-19] MEDS ORDERED: HYDROCORTISONE SUC 100 MG INJ ONE (16:22)
[2020-04-19 17:27] VITALS: O2SAT 98
--- NOTE | 2020-04-21 10:34 | RAD REPORT ---
EXAM DESCRIPTION: CT - Abdomen Pelvis W Contrast - 04/19/2020 6:29 am CLINICAL HISTORY: Groin pain TECHNIQUE: Contiguous axial images obtained through the abdomen and pelvis following the uneventful administration of IV contrast. Coronal and sagittal reformatted images were provided. This exam was performed according to our departmental dose-optimization program, which includes autom ated exposure control, adjustment of the mA and/or kV according to patient size and/or use of iterati ve reconstruction technique. COMPARISON: None available for comparison. FINDINGS: Lung bases: Patchy left lower lobe groundglass opacities. Liver: The liver is enlarged and diffusely low in density compatible with steatosis. Scattered hepati c cysts, the largest right posterior measuring 3.7 cm. Gallbladder and biliary system: Unremarkable Pancreas: Unremarkable Spleen: Unremarkable Adrenals: Unremarkable Kidneys: Normal renal cortical enhancement. No calculi. No hydronephrosis. Bowel: Nondilated fluid-filled small bowel loops without discrete transition. Moderate stool within t he proximal to mid large bowel. Colonic diverticula without adjacent inflammatory change. No obstruct ion. No appreciable mucosal thickening. Appendix: Normal caliber appendix. No findings to suggest acute appendicitis. Urinary bladder: Unremarkable Reproductive: Subserosal fibroid at the right fundus measuring approximately 3.3 cm. No adnexal mass. Lymph nodes: No pathologically enlarged lymph nodes. Peritoneum: No focal fluid collection. No free air. Vessels: Mild to moderate atherosclerotic disease. No abdominal aortic aneurysm. Abdominal wall: Unremarkable Bones: Multilevel spondylosis. No acute fracture. IMPRESSION: 1. No acute abnormality identified within the abdomen and pelvis. 2. Imaging features can be seen with viral pneumonia, though are nonspecific and can occur with a v ariety of infectious and noninfectious processes. PneInd Reference: https://pubs.rsna.org/doi/full/10 .1148/ryct.5486273831 3. Other findings as above. Electronically signed by: Sawyer Sandoval MD 04/19/2020 2:05 AM SEAM HAMMERER Due to temporary technical issues with the PACS/Fluency reporting system, reports are being signed by the in house radiologist without review as a courtesy to ensure prompt reporting. The interpreting r adiologist is fully responsible for the content of the report.
--- NOTE | 2020-04-21 10:38 | RAD REPORT ---
EXAM DESCRIPTION: CT - Chest For Pe Angio - 04/19/2020 6:30 am CLINICAL HISTORY: CHEST PAIN TECHNIQUE: Contiguous axial images obtained through the chest during angiographic phase following th e uneventful administration of IV contrast. Sagittal and coronal reformatted images were provided. NC P reformatted images were provided. This exam was performed according to our departmental dose-optimization program, which includes autom ated exposure control, adjustment of the mA and/or kV according to patient size and/or use of iterati ve reconstruction technique. COMPARISON: No prior exams provided for comparison. FINDINGS: Diagnostic quality: There is poor opacification of the pulmonary arterial tree. Motion art ifact degrades image quality. Lungs: Scattered patchy groundglass opacities within the left lower lobe and to a lesser extent withi n the right upper, right middle, right lower lobes and lingula. Airways are patent. Pleura: No effusion. No pneumothorax. Heart and pericardium: The heart is mildly enlarged. No pericardial effusion. Mediastinum and monique: Top normal mediastinal and hilar lymph nodes measuring up to 11 mm in short axi s. Lower neck and chest wall: The thyroid is diffusely enlarged. Vessels: Mild atherosclerotic disease. No thoracic aortic aneurysm. Upper abdomen: The liver is enlarged and diffusely low in density compatible with steatosis. Scattere d hepatic hypodensities which cannot be fully characterized. An index lesion on the left measures 1.4 cm. Bones: Multilevel spondylosis. No acute fracture. IMPRESSION: 1. Nondiagnostic evaluation for pulmonary embolic disease secondary to poor contrast b olus timing resulting in inadequate intravenous contrast opacification of the pulmonary arteries in c ombination with motion artifact. 2. Imaging features can be seen with viral pneumonia, though are nonspecific and can occur with a v ariety of infectious and noninfectious processes. PneInd Reference: https://pubs.rsna.org/doi/full/10 .1148/ryct.7119972565 3. Other findings as above. Electronically signed by: Sawyer Sandoval MD 04/19/2020 1:54 AM ADMINISTRATIVE STAFF SUPERVISOR Due to temporary technical issues with the PACS/Fluency reporting system, reports are being signed by the in house radiologist without review as a courtesy to ensure prompt reporting. The interpreting r adiologist is fully responsible for the content of the report.
== END 2020-04-19 16:50 | disposition home or self-care (01) ==
LOC: ER 23:34 → ERHOLD 04-19 02:06
PROVIDERS: ADMIT Internal Medicine; ATTEND Hospitalist
DX: U07.1 COVID-19 (principal); J12.89 Other viral pneumonia; I10 Essential (primary) hypertension; E78.5 Hyperlipidemia, unspecified; F20.9 Schizophrenia, unspecified; E78.00 Pure hypercholesterolemia, unspecified; I69.351 Hemiplegia and hemiparesis following cerebral infarction affecting right dominant side; F32.9 Major depressive disorder, single episode, unspecified; G62.9 Polyneuropathy, unspecified; R79.1 Abnormal coagulation profile; R10.30 Lower abdominal pain, unspecified; F17.200 Nicotine dependence, unspecified, uncomplicated; R94.31 Abnormal electrocardiogram [ECG] [EKG]
CPT/HCPCS: 36415; 71045; 71275; 74177; 80048; 80061; 80076; 82728; 83735; 83880; 84484; 85025; 85379; 85610; 93005; 93971; 99285; G0378; J1650; J1720; J2270; Q9967; U0003

== ENCOUNTER 2020-05-04 14:55 | Observation (INO) | payer OTHER ==
--- OUTSIDE RECORDS SUMMARY | 2020-05-04 14:57 | XMS REPORT | Clinical Summary ---
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
[2020-05-04 15:54] LABS: Absolute Lymphocytes (CBC) 2.6 K/uL (0.7-4.9); Basophils % 0.7 % (0-1.3); Hematocrit 38.2 % (36.0-45.0); Lymphocytes % 38.4 % (15.3-44.8); MPV 8.9 fL (7.6-11.3); RBC Red Blood Cell Count 4.33 M/uL (3.86-4.86)
[2020-05-04 15:56] LABS: Protime INR 1.01
--- NOTE | 2020-05-04 16:06 | RAD REPORT ---
EXAM DESCRIPTION: CT - Head Brain Wo Cont - 05/04/2020 3:56 pm CLINICAL HISTORY: Dizziness;Headache Headache, drowsiness COMPARISON: HEAD BRAIN W O CONTRAST dated 07/20/2012; HEAD BRAIN W O CONTRAST dated 12/19/2011 TECHNIQUE: All CT scans are performed using dose optimization technique as appropriate and may inclu de automated exposure control or mA/KV adjustment according to patient size. FINDINGS: No intracranial hemorrhage, hydrocephalus or extra-axial fluid collection.No areas of brai n edema or evidence of midline shift. The paranasal sinuses and mastoids are clear. The calvarium is intact. IMPRESSION: No acute intracranial abnormality.
[2020-05-04 16:14] LABS: ALT/SGPT 54 U/L (12-78); AST/SGOT 31 U/L (15-37); Albumin 3.6 g/dL (3.4-5.0); Alkaline Phosphatase 76 U/L (45-117); BUN Blood Urea Nitrogen 7 mg/dL (7-18); Bicarbonate 26 mmol/L (21-32); Bilirubin Direct < 0.1 mg/dL (0-0.2); Bilirubin Total 0.4 mg/dL (0.2-1.0); Glucose Level 94 mg/dL (74-106); Magnesium 1.9 mg/dL (1.8-2.4); NT PRO-BNP 47 pg/mL (<125); Potassium 3.7 mmol/L (3.5-5.1); Protein, Total 8.1 g/dL (6.4-8.2); Sodium Level 142 mmol/L (136-145); Troponin (Emerg Dept Use Only) < 0.02 ng/mL (0.0-0.045)
[2020-05-04] MEDS ORDERED: NITROGLYCERIN 0.4 MG/TAB SL ONE (16:14)
[2020-05-04] MEDS ORDERED: ASPIRIN 81 MG CHEWABLE TABLET ONE ×2 (17:11→17:20)
--- NOTE | 2020-05-04 17:43 | RAD REPORT ---
EXAM DESCRIPTION: CT - Chest For Pe Angio - 05/04/2020 5:30 pm CLINICAL HISTORY: Chest pain. CHEST PAIN COMPARISON: Chest For Pe Angio dated 04/19/2020 TECHNIQUE: CT angiogram of the pulmonary arteries was performed with MIP. All CT scans are performed using dose optimization technique as appropriate and may include automated exposure control or mA/KV adjustment according to patient size. FINDINGS: No evidence of pulmonary thromboembolism. No acute aortic finding demonstrated. The lungs are clear. No significant pericardial or pleural fluid. No concerning bony finding. IMPRESSION: No evidence of pulmonary thromboembolism. No acute lung findings.
--- NOTE | 2020-05-04 17:44 | RAD REPORT ---
EXAM DESCRIPTION: RAD - Chest Single View - 05/04/2020 4:07 pm CLINICAL HISTORY: CHEST PAIN Chest pain. COMPARISON: Chest Single View dated 04/19/2020; CHEST SINGLE VIEW dated 11/19/2013; CHEST SINGLE VIEW d ated 02/24/2013; CHEST SINGLE VIEW dated 07/21/2012 FINDINGS: Portable technique limits examination quality. The lungs are grossly clear. The heart is normal in size. No displaced fractures. IMPRESSION: No acute intrathoracic process suspected.
--- NOTE | 2020-05-04 17:49 | RAD REPORT ---
EXAM DESCRIPTION: RAD - Femur Right - 05/04/2020 5:16 pm CLINICAL HISTORY: PAIN COMPARISON: No comparisons FINDINGS: No acute fracture or dislocation seen.
--- NOTE | 2020-05-04 17:52 | EDPHYS ---
Physician Documentation [facility] Name: Tyrese Alberto Age: 54 yrs Sex: Female : 1965 Arrival Date: 05/04/2020 Time: 14:58 Bed 15 Private MD: ED Physician Lincoln Carbone HPI: 05/04 15:30 This 54 yrs old Black Female presents to ER via Ambulatory with complaints of Chest cp Pain, Flank Pain. 15:30 The patient or guardian reports chest pain that is located primarily in the substernal cp area. 15:30 Onset: yesterday. The pain does not radiate. Associated signs and symptoms: Pertinent cp positives: cough, dizziness, headache, lower extremity pain, Pertinent negatives: syncope, vomiting. Duration: The patient or guardian reports a single episode, that is still ongoing, and unchanged. 15:30 The chest pain is described as aching. cp SURGEON/PRESIDENT: 21:43 LMP 2017 rr5 Historical: - Allergies: 15:10 No Known Allergies; sv - PMHx: 15:10 fatty liver; High Cholesterol; Hypertension; sv - PSHx: 15:10 ; sv - Immunization history:: Flu vaccine is up to date. - Social history:: Smoking status: Patient reports the use of cigarette tobacco products, denies chronic smoking, but will smoke occasionally. ROS: 15:33 Constitutional: Negative for body aches, chills, fever, poor PO intake. cp 15:33 Eyes: Negative for injury, pain, redness, and discharge. cp 15:33 ENT: Negative for ear pain, sore throat, difficulty swallowing, difficulty handling secretions. 15:33 Cardiovascular: Positive for chest pain, Negative for edema, palpitations. 15:33 Respiratory: Positive for shortness of breath, Negative for wheezing. 15:33 Abdomen/GI: Negative for abdominal pain, nausea, vomiting, and diarrhea. Exam: 15:40 Constitutional: The patient appears in no acute distress, alert, awake, cp non-diaphoretic, non-toxic, well developed, well nourished, obese, uncomfortable. 15:40 Head/Face: Normocephalic, atraumatic. cp 15:40 Eyes: Periorbital structures: appear normal, Conjunctiva: normal, no exudate, no cp injection, Sclera: no appreciated abnormality, Lids and lashes: appear normal, bilaterally. 15:40 ENT: External ear(s): are unremarkable, Nose: is normal, Mouth: Lips: moist, Oral cp mucosa: moist, Posterior pharynx: Airway: no evidence of obstruction, patent. 15:40 Neck: ROM/movement: is normal, is supple, without pain, no range of motions limitations, no nuchal rigidity. 15:40 Chest/axilla: Inspection: normal, Palpation: crepitus, is not appreciated, tenderness, that is mild, of the anterior aspect of right upper chest, anterior aspect of left upper chest and mid-sternal area. 15:40 Cardiovascular: Rate: normal, Rhythm: irregular, Pulses: Pulses are 2+ in right radial artery and left radial artery. Edema: is not appreciated, JVD: is not appreciated. 15:40 Respiratory: the patient does not display signs of respiratory distress, Respirations: normal, no use of accessory muscles, no retractions, no splinting, no tachypnea, labored breathing, is not present, Breath sounds: bronchial sounds, that are mild, are heard diffusely, rhonchi, are not appreciated, stridor, is not appreciated. 15:40 Abdomen/GI: Inspection: abdomen appears normal, Bowel sounds: active, all quadrants, Palpation: abdomen is soft and non-tender, in all quadrants. 15:40 Back: CVA tenderness, is absent. 15:40 Musculoskeletal/extremity: Extremities: grossly normal except: noted in the right leg: pain, tenderness. 15:40 Neuro: Orientation: to person, place \T\ time. Mentation: is normal, Cerebellar function: is grossly normal, Motor: moves all fours, strength is normal, Sensation: is normal. 15:45 ECG was reviewed by the Attending Physician. cp Vital Signs: 15:07 BP 150 / 85; Pulse 88; Resp 20; Temp 97.3; Pulse Ox 99% ; Weight 75.75 kg; Height 4 ft. sv 11 in. (149.86 cm); 19:00 BP 110 / 62; Pulse 80; Resp 17; Pulse Ox 98% ; rr5 20:30 BP 104 / 50; Pulse 92; Resp 17; Temp 99; Pulse Ox 98% ; rr5 21:38 BP 104 / 56; Pulse 86; Resp 19; Pulse Ox 98% ; rr5 15:07 Body Mass Index 33.73 (75.75 kg, 149.86 cm) sv MDM: 15:10 Patient medically screened. cp 16:00 Differential diagnosis: abnormal EKG, acute myocardial infarction, chest wall pain, cp costochondritis, pleurisy, pneumonia, pneumothorax, pulmonary embolus, thoracic aortic disection, unstable angina. 17:37 Data reviewed: vital signs, nurses notes, lab test result(s), EKG, radiologic studies. Test interpretation: by ED physician or midlevel provider: ECG, xrays of right femur negative for fracture and xray of chest negative for focal pneumonia. 17:45 The patient was given aspirin in the Emergency Department. 17:45 Physician consultation: Mitchell RUSH was called at 17:45, was contacted at 17:45, regarding admission, to the telemetry unit. patient's condition. 05/04 15:27 Order name: Basic Metabolic Panel; Complete Time: 16:15 05/04 15:27 Order name: CBC with Diff; Complete Time: 16:09 05/04 15:27 Order name: LFT's; Complete Time: 16:15 05/04 15:27 Order name: Magnesium; Complete Time: 16:15 05/04 15:27 Order name: NT PRO-BNP; Complete Time: 16:15 05/04 15:27 Order name: PT-INR; Complete Time: 16:52 05/04 15:27 Order name: Troponin (emerg Dept Use Only); Complete Time: 16:15 05/04 15:27 Order name: XRAY Chest (1 view); Complete Time: 17:51 05/04 15:28 Order name: Influenza Screen (a \T\ B); Complete Time: 16:52 05/04 16:17 Order name: LAB Add On 05/04 16:25 Order name: D-Dimer; Complete Time: 16:52 EDRI 05/04 16:52 Interpretation: Abnormal: D-DIMER 703. 05/04 19:03 Order name: SARS-COV-2 RT PCR EDRI 05/04 15:27 Order name: EKG; Complete Time: 15:28 05/04 15:27 Order name: Cardiac monitoring; Complete Time: 15:48 05/04 15:27 Order name: EKG - Nurse/Tech; Complete Time: 15:48 cp 05/04 15:27 Order name: IV Saline Lock; Complete Time: 15:49 cp 05/04 15:27 Order name: Labs collected and sent; Complete Time: 15:49 cp 05/04 15:27 Order name: O2 Per Protocol; Complete Time: 15:49 cp 05/04 15:27 Order name: O2 Sat Monitoring; Complete Time: 15:49 cp 05/04 15:28 Order name: CT Head Brain wo Cont; Complete Time: 16:09 cp 05/04 16:08 Order name: US Extremity Venous Unilateral Ltd; Complete Time: 18:13 cp 05/04 18:13 Interpretation: Report reviewed. 05/04 16:46 Order name: CT Chest For PE Angio; Complete Time: 17:51 cp 05/04 16:46 Order name: XRAY Femur RIGHT; Complete Time: 17:51 cp EC:45 Rate is 79 beats/min. Rhythm is regular. CA interval is normal. QRS interval is normal. cp QT interval is normal. T waves are Inverted in leads I, II, aVF, V3, V4, V5, V6. Interpreted by me. Reviewed by me. Administered Medications: 16:10 Drug: Nitroglycerin 0.4 mg Route: Sublingual; zb 16:20 Follow up: Response: No adverse reaction zb 16:40 Drug: Nitroglycerin 0.4 mg Route: Sublingual; zb 16:55 Follow up: Response: No adverse reaction; Pain is decreased zb 17:00 Drug: Aspirin Chewable Tablet 324 mg Route: PO; zb 17:20 Follow up: Response: No adverse reaction zb 18:31 Drug: Lovenox 1 mg/kg Route: Sub-Q; Site: right lower abdomen; zb 18:47 Follow up: Response: No adverse reaction zb Disposition: 05/04/20 17:51 Hospitalization ordered by Purvi Dinero for Observation. Preliminary diagnosis are Chest pain, unspecified, Acute embolism and thrombosis of other specified deep vein of right lower extremity. - Bed requested for Intensive Care Unit. - Status is Observation. rr5 - Condition is Stable. - Problem is new. - Symptoms have improved. Addendum: 05/10/2020 07:17 Co-signature as Attending Physician, Lincoln Carbone MD. r n Signatures: Dispatcher [employer] EDRI Karen Bazan, RN RN sv Ro Davis RN RN dw Lincoln Carbone MD MD rn Page, Corey, PA PA cp Jaison Donato RN RN rr5 Sonal Tim RN RN zb Corrections: (The following items were deleted from the chart) 05/04 16:25 16:18 D-DIMER+COAG.LAB.BRZ ordered. EDMS EDMS 18:01 15:28 CORONAVIRUS+MR.LAB.BRZ ordered. EDRI EDMS 19:06 17:51 Hospitalization Ordered by Purvi Dinero MD for Observation. Preliminary dw diagnosis is Chest pain, unspecified; Acute embolism and thrombosis of other specified deep vein of right lower extremity. Bed requested for Telemetry/MedSurg (observation). Status is Observation. Condition is Stable. Problem is new. Symptoms have improved. cp 21:52 19:06 05/04/2020 17:51 Hospitalization Ordered by Purvi Dinero MD for Observation. rr5 Preliminary diagnosis is Chest pain, unspecified; Acute embolism and thrombosis of other specified deep vein of right lower extremity. Bed requested for Intensive Care Unit. Status is Observation. Condition is Stable. Problem is new. Symptoms have improved. dw 05/05 11:53 11:52 Constitutional: The patient appears in no acute distress, alert, awake, cp non-diaphoretic, non-toxic, well developed, well nourished, obese, uncomfortable, cp 20:11 05/04 15:30 Associated signs and symptoms: Pertinent positives: lower extremity pain, cpcp
--- NOTE | 2020-05-04 17:52 | ER ---
Nurse's Notes [facility] Name: Tyrese Alberto Age: 54 yrs Sex: Female : 1965 Arrival Date: 05/04/2020 Time: 14:58 Bed 15 Private MD: Diagnosis: Chest pain, unspecified;Acute embolism and thrombosis of other specified deep vein of right lower extremity Presentation: 05/04 15:07 Chief complaint: Patient states: RLE weakness, occipital headache x 2 weeks. Dizziness sv x 2 days. Chest pain only with deep breathing since last night. Coronavirus screen: Client denies travel out of the [place] in the last 14 days. Client presents with at least one sign or symptom that may indicate coronavirus-19. Standard/surgical mask placed on the client. Provider contacted for isolation considerations. Pt was exposed to her daughter 2 weeks ago who was positive for COVID. Ebola Screen: No symptoms or risks identified at this time. Initial Sepsis Screen: Does the patient meet any 2 criteria? No. Patient's initial sepsis screen is negative. Does the patient have a suspected source of infection? No. Patient's initial sepsis screen is negative. Risk Assessment: Do you want to hurt yourself or someone else? Patient reports no desire to harm self or others. Onset of symptoms was April 2020. 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 - Social history:: Smoking status: Patient reports the use of cigarette tobacco products, denies chronic smoking, but will smoke occasionally. Screenin:10 Abuse screen: Denies threats or abuse. Denies injuries from another. Nutritional rr5 screening: No deficits noted. Tuberculosis screening: No symptoms or risk factors identified. Fall Risk IV access (20 points). Total Escobedo Fall Scale indicates No Risk (0-24 pts). Assessment: 16:41 Reassessment: Received report from lab D-dimer of 703- notified ECP. zb 19:10 General: Appears in no apparent distress. comfortable, Behavior is calm, cooperative, rr5 appropriate for age, for transfer to covid floor. 19:10 Pain: Complains of pain in chest Pain Quality of pain is described as aching, Pain rr5 began gradually, Is intermittent. Neuro: Level of Consciousness is awake, alert, obeys commands. Cardiovascular: Reports chest pain, Capillary refill < 3 seconds Patient's skin is warm and dry. Respiratory: Airway is patent Respiratory effort is even, unlabored, Respiratory pattern is regular, symmetrical. GI: No signs and/or symptoms were reported involving the gastrointestinal system. : Reports pain flank(s). EENT: No signs and/or symptoms were reported regarding the EENT system. Derm: Skin is intact, is healthy with good turgor, Skin temperature is warm. Musculoskeletal: Circulation, motion, and sensation intact. Capillary refill. 20:30 Reassessment: Patient appears in no apparent distress at this time. Patient is alert, rr5 oriented x 3, equal unlabored respirations, skin warm/dry/pink. 21:30 Reassessment: Patient appears in no apparent distress at this time. Patient is alert, rr5 oriented x 3, equal unlabored respirations, skin warm/dry/pink. awake alert vital signs taken and recorded transfer to [facility] floor. Vital Signs: 15:07 BP 150 / 85; Pulse 88; Resp 20; Temp 97.3; Pulse Ox 99% ; Weight 75.75 kg; Height 4 ft. sv 11 in. (149.86 cm); 19:00 BP 110 / 62; Pulse 80; Resp 17; Pulse Ox 98% ; rr5 20:30 BP 104 / 50; Pulse 92; Resp 17; Temp 99; Pulse Ox 98% ; rr5 21:38 BP 104 / 56; Pulse 86; Resp 19; Pulse Ox 98% ; rr5 15:07 Body Mass Index 33.73 (75.75 kg, 149.86 cm) sv ED Course: 14:58 Patient arrived in ED. mr 15:03 Patricio Perdomo PA is PHCP. cp 15:03 Lincoln Carbone MD is Attending Physician. cp 15:05 Sonal Tim, ALEKSANDAR is Primary Nurse. zb 15:10 Triage completed. sv 15:10 Arm band placed on Patient placed in an exam room, on a stretcher. sv 15:40 EKG done, by ED staff, reviewed by Patricio WILCOX. jp3 15:48 Influenza Screen (a \T\ B) Sent. zb 15:56 CT Head Brain wo Cont In Process Unspecified. EDMS 16:07 XRAY Chest (1 view) In Process Unspecified. EDMS 17:16 XRAY Femur RIGHT In Process Unspecified. EDMS 17:30 CT Chest For PE Angio In Process Unspecified. EDMS 17:50 Ultrasound completed. Patient tolerated well. Notified REFINISHER/PA page. sg3 17:50 Purvi Dinero MD is Hospitalizing Provider. cp 17:52 US Extremity Venous Unilateral Ltd In Process Unspecified. EDMS 19:05 Patient has correct armband on for positive identification. Placed in gown. Bed in low rr5 position. Call light in reach. patient monitor on. Pulse ox on. NIBP on. 21:43 No provider procedures requiring assistance completed. Patient admitted, IV remains in rr5 place. intact, No redness/swelling at site. Patient maintains SpO2 saturation greater than 95% on room air. Administered Medications: 16:10 Drug: Nitroglycerin 0.4 mg Route: Sublingual; zb 16:20 Follow up: Response: No adverse reaction zb 16:40 Drug: Nitroglycerin 0.4 mg Route: Sublingual; zb 16:55 Follow up: Response: No adverse reaction; Pain is decreased zb 17:00 Drug: Aspirin Chewable Tablet 324 mg Route: PO; zb 17:20 Follow up: Response: No adverse reaction zb 18:31 Drug: Lovenox 1 mg/kg Route: Sub-Q; Site: right lower abdomen; zb 18:47 Follow up: Response: No adverse reaction zb Outcome: 17:51 Decision to Hospitalize by Provider. cp 21:43 Admitted to ICU accompanied by tech, via stretcher, room 6, with chart, Report called rr5 to amena 21:43 Condition: stable 21:43 Instructed on the need for admit. 21:52 Patient left the ED. rr5 Signatures: Dispatcher [employer] Karen Haider, ALEKSANDAR rodriguez Thacker Roselyn ge Leanne, BRENDEN Curry cp Bernadette Arroyo sg3 Flaquito Rodriguez jp3 Jaison Donato RN RN rr5 Sonal Tim RN RN zb Corrections: (The following items were deleted from the chart) 18:01 15:48 CORONAVIRUS+ZANE drawn and sent. mariela EDMS
--- NOTE | 2020-05-04 17:57 | RAD REPORT ---
EXAM DESCRIPTION: US - Extremity Venous Uni Ltd - 05/04/2020 5:51 pm CLINICAL HISTORY: PAIN Leg swelling and edema. COMPARISON: Extremity Venous Uni Ltd dated 04/19/2020 FINDINGS: Right lower extremity venous system was interrogated with Doppler technique. Thrombus with partial compressibility is seen in the right popliteal vein compatible with DVT. IMPRESSION: Positive for right popliteal vein DVT.
[2020-05-04] MEDS ORDERED: ENOXAPARIN 80 MG/0.8 ML SQ ONE (18:32)
--- NOTE | 2020-05-04 19:23 | P.HP ---
Certification for Inpatient Patient admitted to: Observation With expected LOS: <2 Midnights Patient will require the following post-hospital care: None Practitioner: I am a practitioner with admitting privileges, knowledge of patient current condition, hospital course, and medical plan of care. Services: Services provided to patient in accordance with Admission requirements found in Title 42 Section 412.3 of the Code of Federal Regulations <Mitchell Jean - Last Filed: 05/04/20 19:19> Patient History Date of Service: 05/04/20 Primary Care Provider: None local Reason for admission: Chest pain, DVT History of Present Illness: 54-year-old female with history of hypertension, hyperlipidemia , fatty liver disease presents emergency department for chest pain and right lower extremity pain. Patient was positive for Briggs virus on April 18, 2020, admitted for chest pain at that time. Patient reports that her chest pain began last night, describes pain as sharp/stabbing radiating to right anterior chest wall. Chest pain associated with headache, denies shortness of breath, diaphoresis, syncope. Pain is not relieved or exacerbated by anything. Patient also reports pain to the right lower extremity. Patient was evaluated in the emergency department, ultrasound right lower extremity shows popliteal DVT, CT PE protocol negative for pulmonary embolism. Initial troponin negative but she does have some new inverted T-waves in leads 1, 2, 3 and V1 through V3. ED provider wishes to admit patient for observation for further evaluation and management. 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 -: depression -: schitzophrenia -: neuropathy -: cyst on liver -: Caesarean section Psychosocial/ Personal History: Patient is unemployed and lives with a daughter - Family History Father -: Lung disease, Other (see notes) - Social History Smoking Status: Current every day smoker Counseled patient to stop smoking for: less than 10 minutes Smoking therapy provided: Yes Alcohol use: No CD- Drugs: No Caffeine use: Yes Place of Residence: Home <Mitchell Jean - Last Filed: 05/04/20 19:19> Date of Service: 05/04/20 <Purvi Dinero - Last Filed: 05/06/20 05:05> Allergies No Known Allergies Allergy (Unverified 05/04/20 22:58) Home Medications: Albuterol Inhaler [Ventolin Inhaler*] 2 puff IH Q6H PRN #1 hfa.aer.ad 04/19/20 Atorvastatin Calcium [Lipitor] 40 mg PO BEDTIME 04/19/20 Pantoprazole [Protonix Tab*] 40 mg PO BID 04/19/20 Amlodipine [Norvasc*] 5 mg PO DAILY 05/05/20 Apixaban [Eliquis] 5 mg PO SEECOM #75 tablet 05/05/20 clonazePAM [Clonazepam] 0.5 mg PO BID PRN #5 05/05/20 Review of Systems 10-point ROS is otherwise unremarkable Cardiovascular: Chest Pain Musculoskeletal: Leg Pain <Mitchell Jean - Last Filed: 05/04/20 19:19> Physical Examination - Physical Exam General: Alert, In no apparent distress HEENT: Atraumatic, PERRLA, Mucous membr. moist/pink Neck: Supple, 2+ carotid pulse no bruit, No LAD Respiratory: Clear to auscultation bilaterally, Normal air movement Cardiovascular: Regular rate/rhythm, Normal S1 S2 Gastrointestinal: Normal bowel sounds, No tenderness Musculoskeletal: No tenderness Integumentary: No rashes Neurological: Normal gait, Normal speech, Normal strength at 5/5 x4 extr, Normal tone, Normal affect - Studies Laboratory Data (last 24 hrs) 05/04/20 15:41: PT 11.9, INR 1.01 05/04/20 15:41: WBC 6.8, Hgb 12.9, Hct 38.2, Plt Count 362 05/04/20 15:41: Sodium 142, Potassium 3.7, BUN 7, Creatinine 0.62, Glucose 94, Magnesium 1.9, Total Bilirubin 0.4, AST 31, ALT 54, Alkaline Phosphatase 76 Microbiology Data (last 24 hrs): 05/04/20 15:41 Nasopharnyx Influenza Type A Antigen Screen - Final 05/04/20 15:41 Nasopharnyx Influenza Type B Antigen Screen - Final <Mitchell Jean - Last Filed: 05/04/20 19:19> Assessment and Plan - Plan Assessment Acute right popliteal DVT Chest pain rule out ACS COVID positive Hypertension Hyperlipidemia Plan Acute right popliteal DVT: Continue with Lovenox 1 milligram/kilogram twice daily. Likely transition to oral anti coagulation tomorrow. Monitor on telemetry. Chest pain rule out ACS: Trend troponins, monitor on telemetry. Cardiology consult in place. Continue aspirin, statin, beta-sahra therapy. COVID positive: Patient initially tested positive on 04/18/2020. Patient no longer symptomatic at this time, CT PE protocol did not demonstrate any pneumonia at this time. Will continue to monitor. Admit to COVID unit. Hypertension: Obtain and continue home medications Hyperlipidemia: Continue statin peer Discharge Plan: Home Plan to discharge in: 24 Hours - Advance Directives Does patient have a Living Will: No Does patient have a Durable POA for Healthcare: No - Code Status/Comfort Care Code Status Assessed: Yes (Full code) Critical Care: No Time Spent Managing Pts Care (In Minutes): 55 <Mitchell Jean - Last Filed: 05/04/20 19:19> Date of Service: 05/04/20 Agree with findings as mentioned above. Continue with plan of care per hospitalist in a.m. <Purvi Dinero - Last Filed: 05/06/20 05:05>
[2020-05-04] MEDS ORDERED: ONDANSETRON 4 MG/2 ML VIAL IV PRN (22:42)
[2020-05-04] MEDS ORDERED: ATORVASTATIN 40 MG TAB PO SCH (22:42)
[2020-05-04] MEDS ORDERED: ACETAMINOPHEN 500 MG TAB PO PRN (22:42)
[2020-05-04 23:12] VITALS: BMI 34.8
[2020-05-04] MEDS: MORPHINE 2 MG/ML SYR IV PRN (23:31)
[2020-05-05 00:06] VITALS: O2SAT 100
[2020-05-05 05:07] LABS: Absolute Lymphocytes (CBC) 3.1 K/uL (0.7-4.9); Basophils % 0.8 % (0-1.3); Hematocrit 35.9 % (36.0-45.0); Lymphocytes % 47.4 % (15.3-44.8); MPV 8.6 fL (7.6-11.3); RBC Red Blood Cell Count 4.05 M/uL (3.86-4.86)
[2020-05-05 05:31] LABS: BUN Blood Urea Nitrogen 7 mg/dL (7-18); Bicarbonate 28 mmol/L (21-32); Ferritin 163.1 ng/mL (8-388); Glucose Level 89 mg/dL (74-106); Potassium 3.6 mmol/L (3.5-5.1); Sodium Level 141 mmol/L (136-145); Troponin I < 0.02 ng/mL (0.0-0.045)
[2020-05-05] MEDS ORDERED: clonazePAM 0.5 MG TAB PO PRN (07:57)
[2020-05-05] MEDS ORDERED: POTASSIUM 25 MEQ EFFERV TAB PO ONE (08:00)
--- NOTE | 2020-05-05 08:08 | P.DS ---
Admission Date: 05/04/20 Discharge Date: 05/05/20 Primary Care Provider: none Disposition: ROUTINE DISCHARGE Discharge Condition: GOOD Reason for Admission: Chest pain, DVT Consultations: Cardiology-Dr. Jarrett Procedures: CT Head: FINDINGS: No intracranial hemorrhage, hydrocephalus or extra-axial fluid collection.No areas of brain edema or evidence of midline shift. The paranasal sinuses and mastoids are clear. The calvarium is intact. IMPRESSION: No acute intracranial abnormality. CT Chest: FINDINGS: No evidence of pulmonary thromboembolism. No acute aortic finding demonstrated. The lungs are clear. No significant pericardial or pleural fluid. No concerning bony finding. IMPRESSION: No evidence of pulmonary thromboembolism. No acute lung findings. Xray: COMPARISON: No comparisons FINDINGS: No acute fracture or dislocation seen. Venous doppler: FINDINGS: Right lower extremity venous system was interrogated with Doppler technique. Thrombus with partial compressibility is seen in the right popliteal vein compatible with DVT. IMPRESSION: Positive for right popliteal vein DVT. Medical Problem List: Acute right popliteal DVT Chest pain rule out ACS COVID 19 positive, asymptomatic Hypertension Hyperlipidemia GERD Anxiety Tobacco abuse Brief History of Present Illness: 54-year-old female with history of hypertension, hyperlipidemia, anxiety presented to the emergency room with chest pain and right lower extremity pain. Patient reports that she was positive for COVID 19 on April 18, 2020. She was admitted for chest pain at that time. Patient was discharged home. Since that time she reported more chest pain and right lower extremity pain. Venous Doppler shows acute popliteal DVT. CT chest showed no pulmonary embolism. Patient was admitted for further evaluation and treatment. Hospital Course: Patient presented with chest pain and right lower extremity pain. Patient found to have acute right popliteal DVT. CT chest showed no pulmonary embolism. Patient was monitored closely. Patient started on anti coagulation therapy. Cardiac enzymes x3 have been negative. 2013 cardiac stress test showed no stress-induced ischemia. Echo 2013 showed normal ejection fraction with mild pulmonary hypertension. Patient has done well. Cardiology was consulted to further evaluate. No further intervention required at this time. At discharge patient will continue with Eliquis 10 mg twice daily for 7 days then 5 mg twice daily for at least 3-6 months. Patient is new to the area. Patient will establish care with a local PCP to continue her care and follow up closely. DVT may be COVID related.Recommend follow up with cardiology in 2-4 weeks to follow up this hospitalization. Patient would benefit with outpatient cardiac stress tests and echocardiogram to further evaluate her condition. Education on Eliquis and DVT will be provided. Patient tested positive for COVID 19 in early April. Patient asymptomatic at this time. No need for intervention or medication. Patient was retested at this time. Patient remains positive. Education on CDC guidelines for COVID 19 with will be provided including isolation. Recommend to continue face mask use, social distancing, and hand washing. Patient with hypertension. Patient may continue with Norvasc 5 mg daily. Recommend to discontinue atenolol. Recommend to monitor blood pressure daily. Recommend to maintain blood pressure less than 130/80. If blood pressure remains elevated greater than 140/90 then she can follow up with her PCP to further adjust medication. Patient with hyperlipidemia. At discharge she may continue with Lipitor 40 mg daily. Patient with GERD. At discharge she may continue with Protonix 40 mg 1 pill twice daily. Recommend follow up with GI as an outpatient to further evaluate. Patient would benefit with EGD which can be done as an outpatient. Patient with anxiety. At discharge she may continue with clonazepam 0.5 mg twice daily as needed. A limited supply will be provided. Patient with tobacco abuse. Tobacco cessation education provided. Recommend to continue cessation as an outpatient. Patient plans to quit. Vital Signs/Physical Exam: Temp Pulse Resp BP Pulse Ox 97 F 71 21 H 126/66 99 05/05/20 04:00 05/05/20 04:00 05/05/20 04:00 05/05/20 04:00 05/05/20 04:00 General: Alert, In no apparent distress, Oriented x3, Cooperative HEENT: Atraumatic Neck: Supple Respiratory: Clear to auscultation bilaterally, Normal air movement Cardiovascular: Normal pulses, Regular rate/rhythm Gastrointestinal: Normal bowel sounds, Soft and benign, Non-distended, No tenderness, No masses, No rebound, No guarding Musculoskeletal: No erythema, No tenderness, No warmth Integumentary: No tenderness/swelling, No erythema, No warmth, No cyanosis Neurological: Normal speech, Normal strength at 5/5 x4 extr, Normal tone, Normal affect Laboratory Data at Discharge: WBC 6.5 K/uL (4.3-10.9) 05/05/20 04:51 Hgb 11.9 g/dL (12.0-15.0) L 05/05/20 04:51 Hct 35.9 % (36.0-45.0) L 05/05/20 04:51 Plt Count 325 K/uL (152-406) 05/05/20 04:51 PT 11.9 SECONDS (9.5-12.5) 05/04/20 15:41 INR 1.01 05/04/20 15:41 Sodium 141 mmol/L (136-145) 05/05/20 04:51 Potassium 3.6 mmol/L (3.5-5.1) 05/05/20 04:51 BUN 7 mg/dL (7-18) 05/05/20 04:51 Creatinine 0.53 mg/dL (0.55-1.3) L 05/05/20 04:51 Glucose 89 mg/dL (74-106) 05/05/20 04:51 Magnesium 2.0 mg/dL (1.8-2.4) 05/05/20 04:51 Total Bilirubin 0.4 mg/dL (0.2-1.0) 05/04/20 15:41 AST 31 U/L (15-37) 05/04/20 15:41 ALT 54 U/L (12-78) 05/04/20 15:41 Alkaline Phosphatase 76 U/L (45-117) 05/04/20 15:41 Troponin I < 0.02 ng/mL (0.0-0.045) 05/05/20 04:51 Home Medications: Albuterol Inhaler [Ventolin Inhaler*] 2 puff IH Q6H PRN #1 hfa.aer.ad 04/19/20 Atorvastatin Calcium [Lipitor] 40 mg PO BEDTIME 04/19/20 Pantoprazole [Protonix Tab*] 40 mg PO BID 04/19/20 Amlodipine [Norvasc*] 5 mg PO DAILY 05/05/20 Apixaban [Eliquis] 5 mg PO SEECOM #75 tablet 05/05/20 clonazePAM [Clonazepam] 0.5 mg PO BID PRN #5 05/05/20 New Medications: clonazePAM [Clonazepam] 0.5 mg PO BID PRN #5 PRN Reason: Anxiety Apixaban [Eliquis] 5 mg PO SEECOM #75 tablet Patient Discharge Instructions: 1. Recommend follow up with a PCP to establish care and follow up this hospitalization. 2. Patient presented with chest pain and right lower extremity pain. Patient found to have acute right popliteal DVT. CT chest showed no pulmonary embolism. Patient was monitored closely. Patient started on anti coagulation therapy. Cardiac enzymes x3 have been negative. 2012 cardiac stress test showed no stress-induced ischemia. Echo 2013 showed normal ejection fraction with mild pulmonary hypertension. Patient has done well. Cardiology was consulted to further evaluate. No further intervention required at this time. At discharge patient will continue with Eliquis 10 mg twice daily for 7 days then 5 mg twice daily for at least 3-6 months. Patient is new to the area. Patient will establish care with a local PCP to continue her care and follow up closely. DVT may be COVID related.Recommend follow up with cardiology in 2-4 weeks to follow up this hospitalization. Patient would benefit with outpatient cardiac stress tests and echocardiogram to further evaluate her condition. Education on Eliquis and DVT will be provided. 3. Patient tested positive for COVID 19 in early April. Patient asymptomatic at this time. No need for intervention or medication. Patient was retested at this time. Patient remains positive. Education on CDC guidelines for COVID 19 with will be provided including isolation. Recommend to continue face mask use, social distancing, and hand washing. 4. Patient with hypertension. Patient may continue with Norvasc 5 mg daily. Recommend to discontinue atenolol. Recommend to monitor blood pressure daily. Recommend to maintain blood pressure less than 130/80. If blood pressure remains elevated greater than 140/90 then she can follow up with her PCP to further adjust medication. 5. Patient with hyperlipidemia. At discharge she may continue with Lipitor 40 mg daily. 6. Patient with GERD. At discharge she may continue with Protonix 40 mg 1 pill twice daily. Recommend follow up with GI as an outpatient to further evaluate. Patient would benefit with EGD which can be done as an outpatient. 7. Patient with anxiety. At discharge she may continue with clonazepam 0.5 mg twice daily as needed. A limited supply will be provided. 8. Patient with tobacco abuse. Tobacco cessation education provided. Recommend to continue cessation as an outpatient. Patient plans to quit. Diet: AHA Activity: Ad zak Followup: [email or web address] [Primary Care Provider] - Time spent managing pt's care (in minutes): 55
[2020-05-05] MEDS: MORPHINE 2 MG/ML SYR IV PRN (08:35)
[2020-05-05] MEDS ORDERED: ENOXAPARIN 80 MG/0.8 ML SQ SCH (09:00)
[2020-05-05] MEDS ORDERED: AMLODIPINE 5 MG TAB PO SCH (09:00)
[2020-05-05] MEDS ORDERED: ASPIRIN EC 81 MG TAB PO SCH (09:00)
[2020-05-05] MEDS ORDERED: PANTOPRAZOLE 40MG TABLET PO SCH (09:00)
[2020-05-05 09:44] VITALS: BP 140/81
[2020-05-05 12:06] VITALS: TEMP 98
--- NOTE | 2020-05-05 12:08 | CON ---
Date of Consultation: 05/05/2020 Reason For Consultation: Chest pain. History Of Present Illness: This is a 54-year-old female with history of hypertension, dyslipidemia, obesity, presented to emergency room with chest pain and right lower extremity pain. Patient tested positive for COVID-19 on April 18 and still COVID positive. Pain is retrosternal at rest and no r adiation, sharp in nature, no shortness of breath, no diaphoresis, no dizziness. She also has pain i n the right lower extremity. She had a CTA PE protocol was negative for PE. Past Medical History: As outlined above in HPI. Medication for consultation for detailed list. Allergies: NO KNOWN DRUG ALLERGIES. Social History: She is a smoker, 10 cigarettes per day. Does not drink, use any drugs. Review of Systems: All systems reviewed and they were negative so mentioned HPI. Physical Examination: VITAL SIGNS: Temperature is 98.4, pulse is 70, breathing 18, blood pressure 140/81, saturating 100% on room air. GENERAL: Pleasant middle-aged female, in no apparent distress. HEAD AND NECK: Pupils are equal, react to light. Intact eye movements. No JVD. No cervical lympha denopathy. Neck is supple. Thyroid is not enlarged. LUNGS: Clear to auscultation bilaterally. No rhonchi, rales, or crackles. No accessory muscle use. HEART: Regular rate and rhythm. No extra sounds. ABDOMEN: Soft, nontender. Bowel sounds positive. No organomegaly. EXTREMITIES: No edema, clubbing, or cyanosis. Intact pulses. SKIN: No rash. NEUROLOGIC: Alert, oriented x3. No acute process. Investigations: Troponin x3 is negative. Creatinine 0.53. C-reactive protein is 21. White blood c ell count 6.5. She has DVT of right popliteal vein. CTA PE protocol was negative for pulmonary embo flor. Assessment And Plan: 1.Chest pain. It is atypical, but has multiple risk factors and she is COVID-19 positive. Cardiac enzymes are negative and there is no pulmonary embolus per CTA. Further cardiac workup is recommende d, as patient is being discharged today. Please arrange for outpatient followup in the near future f or stress test and echocardiogram, and report further chest pain episodes back to the emergency room. At this point, patient is chest pain free. 2.Deep vein thrombosis, right lower extremity. Recommend Eliquis 5 mg twice a day and follow up as an outpatient. /DEAN Voice ID: [id number] Report ID: [id number]
[2020-05-05] MEDS ORDERED: ATORVASTATIN 40 MG TAB PO SCH (21:00)
== END 2020-05-05 11:30 | disposition home or self-care (01) ==
LOC: ER 14:55 → ERHOLD 18:23 → 3RD-ICU 21:39
PROVIDERS: ADMIT Hospitalist; ATTEND Family Medicine
DX: R07.89 Other chest pain (principal); I82.431 Acute embolism and thrombosis of right popliteal vein; U07.1 COVID-19; I10 Essential (primary) hypertension; K21.9 Gastro-esophageal reflux disease without esophagitis; E78.5 Hyperlipidemia, unspecified; F41.9 Anxiety disorder, unspecified; F17.210 Nicotine dependence, cigarettes, uncomplicated; Z71.6 Tobacco abuse counseling; I27.20 Pulmonary hypertension, unspecified; K76.0 Fatty (change of) liver, not elsewhere classified; E78.00 Pure hypercholesterolemia, unspecified; F32.9 Major depressive disorder, single episode, unspecified; F20.9 Schizophrenia, unspecified; G62.9 Polyneuropathy, unspecified; K76.89 Other specified diseases of liver; E66.9 Obesity, unspecified; Z68.34 Body mass index [BMI] 34.0-34.9, adult
CPT/HCPCS: 93005; 85025 ×2; 80048 ×2; 36415; 83735 ×2; 85610; 85379; 80076; 84484 ×3; 82728; 83880; 86140; 87804 ×2; 70450; 71275; 71045; 73552; 93971; 96372; 99285; U0003; Q9967; J2270 ×2; G0378 ×2

== ENCOUNTER 2020-08-03 04:49 | Emergency (ER) | payer OTHER ==
--- OUTSIDE RECORDS SUMMARY | 2020-08-03 04:52 | XMS REPORT | Clinical Summary ---
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
[2020-08-03 05:09] LABS: Absolute Lymphocytes (CBC) 4.3 K/uL (0.7-4.9); Basophils % 1.2 % (0-1.3); Hematocrit 39.4 % (36.0-45.0); Lymphocytes % 49.8 % (15.3-44.8); MPV 9.4 fL (7.6-11.3)
[2020-08-03 05:14] LABS: Protime INR 0.93
[2020-08-03] MEDS ORDERED: MORPHINE 4 MG/ML SYR ONE (05:45)
[2020-08-03] MEDS ORDERED: ONDANSETRON 4 MG/2 ML VIAL ONE (05:46)
[2020-08-03 05:49] LABS: ALT/SGPT 72 U/L (12-78); AST/SGOT 39 U/L (15-37); Albumin 3.5 g/dL (3.4-5.0); Alkaline Phosphatase 70 U/L (45-117); BUN Blood Urea Nitrogen 10 mg/dL (7-18); Bicarbonate 24 mmol/L (21-32); Bilirubin Direct < 0.1 mg/dL (0-0.2); Bilirubin Total 0.2 mg/dL (0.2-1.0); Glucose Level 99 mg/dL (74-106); Magnesium 1.9 mg/dL (1.8-2.4); NT PRO-BNP 96 pg/mL (<125); Potassium 3.6 mmol/L (3.5-5.1); Protein, Total 7.5 g/dL (6.4-8.2); Sodium Level 143 mmol/L (136-145); Troponin (Emerg Dept Use Only) < 0.02 ng/mL (0.0-0.045)
--- NOTE | 2020-08-03 08:02 | RAD REPORT ---
EXAM DESCRIPTION: RAD - Chest Single View - 08/03/2020 5:47 am CLINICAL HISTORY: CHEST PAIN COMPARISON: AP chest April 2020 TECHNIQUE: AP portable chest image was obtained 08/03/2020 5:47 am . FINDINGS: Lungs are clear. Heart and vasculature are normal. No measurable pleural effusion and no p neumothorax. No acute bony abnormality seen. No acute aortic findings suspected. IMPRESSION: No acute cardiopulmonary process. No significant change from comparison study.
--- NOTE | 2020-08-03 08:06 | RAD REPORT ---
EXAM DESCRIPTION: CT - Head Brain Wo Cont - 08/03/2020 7:49 am CLINICAL HISTORY: HEADACHE COMPARISON: Head Brain Wo Cont dated 05/04/2020 TECHNIQUE: Axial 5 mm thick images of the head were obtained without IV contrast. All CT scans are performed using dose optimization technique as appropriate and may include automated exposure control or mA/KV adjustment according to patient size. FINDINGS: No intracranial hemorrhage, mass, edema or shift of mid-line structures. No acute infarcti on changes seen. No abnormal extra-axial fluid collections. Ventricles are normal. Mastoid air cells and visualized portions of the paranasal sinuses are clear. Frontal sinuses are no t pneumatized. No acute bony findings. IMPRESSION: Negative non-contrast CT head examination. No significant change from comparison.
--- NOTE | 2020-08-03 08:42 | RAD REPORT ---
EXAM DESCRIPTION: CT - Chest For Pe Angio - 08/03/2020 8:09 am CLINICAL HISTORY: Chest pain;SOB COMPARISON: Chest For Pe Angio dated 05/04/2020; Chest Single View dated 08/03/2020 TECHNIQUE: Dynamically enhanced 3 mm thick images of the chest were obtained during administration o f approximately 150mL Isovue 370 IV contrast. Coronal and oblique MIP reconstruction images were gene rated and reviewed. Exam utilizes a protocol to evaluate the pulmonary arterial tree. All CT scans are performed using dose optimization technique as appropriate and may include automated exposure control or mA/KV adjustment according to patient size. FINDINGS: No pulmonary emboli are identified. The aorta as imaged shows no acute or suspicious finding. No pericardial thickening or effusion. Interstitial markings are mildly prominent mostly due to motion. Minimal interstitial edema or infilt rate would be possible. There are trace amounts of ground-glass opacification in the posterior left l tl base. No pleural effusion or pleural thickening. No mediastinal or hilar suspicious masses. No chest wall masses or abnormal axillary lymphadenopathy. IMPRESSION: No pulmonary emboli identified. Trace amounts of airspace opacification in the left lung base could simply be atelectasis. Very minim al alveolar infiltrate is possible. Lung base pattern is not significantly different from May 02.
--- NOTE | 2020-08-03 08:53 | RAD REPORT ---
EXAM DESCRIPTION: CT - Abdomen Pelvis W Contrast - 08/03/2020 8:08 am CLINICAL HISTORY: Abd pain;Nausea / vomiting COMPARISON: Abdomen Pelvis W Contrast dated 04/19/2020; Abdomen Pelvis W Contrast dated 12/07/2019 ; Chest For Pe Angio dated 08/03/2020 TECHNIQUE: Biphasic, helical CT imaging of the abdomen and pelvis was performed following 100 ml non -ionic IV contrast. No oral contrast administered. All CT scans are performed using dose optimization technique as appropriate and may include automated exposure control or mA/KV adjustment according to patient size. FINDINGS: No suspicious findings in the lung bases. Liver shows diffuse fatty infiltration pattern. There is a 13 millimeter cyst near the gallbladder fo ssa with a lobulated 3.7 cm thin-walled homogeneous fluid attenuation cyst in the medial inferior rig ht lobe. These are both stable from prior imaging. Additional small cysts are present in the left lob e also stable. The spleen, pancreas, gallbladder and biliary tree show no suspicious findings. Stones can be occult on CT imaging. Symmetric renal function is seen with no hydronephrosis or suspicious renal mass. No pyelonephritis o r acute parenchymal process. No bladder abnormalities. No adrenal abnormalities. No new uterine findi ng. Fibroid in the fundus has not changed. Left ovary is prominent in size but unchanged. Right ovary is not clearly defined. No right adnexal mass. No dilated bowel loops or bowel wall thickening. Appendix is normal. No free air, free fluid or infla mmatory stranding. No hernia, mass or bulky lymphadenopathy. Disc and bone degenerative changes are present. No pathologic bone process. IMPRESSION: Contrast enhanced CT abdomen and pelvis showing no acute or emergent finding. Above detailed findings are not significantly different from comparison.
--- NOTE | 2020-08-03 09:04 | EDPHYS ---
Physician Documentation [facility] Name: Tyrese Alberto Age: 55 yrs Sex: Female : 1965 Arrival Date: 08/03/2020 Time: 04:52 Bed 4 Private MD: ED Physician Lincoln Carbone HPI: 08/03 05:34 This 55 yrs old Black Female presents to ER via EMS with complaints of Chest Pain. 7 05:35 The patient or guardian reports chest pain that is located primarily in the anterior mh7 chest wall, left. Onset: last night, at 20:00. The pain does not radiate. 05:35 Associated signs and symptoms: Pertinent positives: abdominal pain, headache, nausea, mh7 shortness of breath, vomiting, Pertinent negatives: cough, diaphoresis, dizziness, lightheadedness, near syncope, palpitations, recent travel, syncope. The chest pain is described as a pressure. Duration: The patient or guardian reports multiple episodes, that are intermittent, that wax and wane. Modifying factors: The symptoms are alleviated by nothing. the symptoms are aggravated by nothing. Severity of pain: At its worst the pain was moderate last night, in the emergency department the pain is unchanged. 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 - Social history:: Smoking status: Patient reports the use of cigarette tobacco products, 4 sticks/day. ROS: 05:35 Constitutional: Negative for fever, chills, and weight loss, Eyes: Negative for injury, mh7 pain, redness, and discharge, ENT: Negative for injury, pain, and discharge, Neck: Negative for injury, pain, and swelling, Back: Negative for injury and pain, : Negative for injury, bleeding, discharge, and swelling, MS/Extremity: Negative for injury and deformity, Skin: Negative for injury, rash, and discoloration, Psych: Negative for depression, anxiety, suicide ideation, homicidal ideation, and hallucinations, Allergy/Immunology: Negative for hives, rash, and allergies, Endocrine: Negative for neck swelling, polydipsia, polyuria, polyphagia, and marked weight changes, Hematologic/Lymphatic: Negative for swollen nodes, abnormal bleeding, and unusual bruising. Exam: 05:35 Head/Face: Normocephalic, atraumatic. Eyes: Pupils equal round and reactive to light, mh7 extra-ocular motions intact. Lids and lashes normal. Conjunctiva and sclera are non-icteric and not injected. Cornea within normal limits. Periorbital areas with no swelling, redness, or edema. Neck: Trachea midline, no thyromegaly or masses palpated, and no cervical lymphadenopathy. Supple, full range of motion without nuchal rigidity, or vertebral point tenderness. No Meningismus. Chest/axilla: Normal chest wall appearance and motion. Nontender with no deformity. No lesions are appreciated. Cardiovascular: Regular rate and rhythm with a normal S1 and S2. No gallops, murmurs, or rubs. Normal PMI, no JVD. No pulse deficits. Respiratory: Lungs have equal breath sounds bilaterally, clear to auscultation and percussion. No rales, rhonchi or wheezes noted. No increased work of breathing, no retractions or nasal flaring. 05:35 Back: No spinal tenderness. No costovertebral tenderness. Full range of motion. Skin: Warm, dry with normal turgor. Normal color with no rashes, no lesions, and no evidence of cellulitis. MS/ Extremity: Pulses equal, no cyanosis. Neurovascular intact. Full, normal range of motion. Neuro: Awake and alert, GCS 15, oriented to person, place, time, and situation. Cranial nerves II-XII grossly intact. Motor strength 5/5 in all extremities. Sensory grossly intact. Cerebellar exam normal. Normal gait. Psych: Awake, alert, with orientation to person, place and time. Behavior, mood, and affect are within normal limits. 05:35 Constitutional: The patient appears in no acute distress, alert, awake, uncomfortable. 05:35 Abdomen/GI: Inspection: obese Bowel sounds: normal, in all quadrants, Palpation: moderate abdominal tenderness, in all quadrants, Rectal exam: the exam is deferred, because of patient request, Indicators: McBurney's point is not tender, Agustin's sign is negative, Rovsing's sign is negative, Obturator sign is negative, Psoas sign is negative, Liver: no appreciated palpable abnormalities, Hernia: not appreciated. Vital Signs: 04:50 BP 186 / 88 LA; Pulse 50; Resp 18; Temp 97.5; Pulse Ox 97% on R/A; mg2 04:50 BP 182 / 77; Pulse 71; Resp 19; Temp 97.4; Pulse Ox 99% ; Weight 81.65 kg; Height 4 ft. rr5 11 in. (149.86 cm); Pain 8/10; 04:55 BP 182 / 77 RA; Pulse 52; Resp 18; Pulse Ox 97% on R/A; mg2 06:05 BP 164 / 110; Pulse 46; Resp 17; Pulse Ox 98% ; rr5 06:41 BP 164 / 101; Pulse 48; Resp 18; Pulse Ox 98% on R/A; mg2 07:25 BP 148 / 74; Pulse 73; Resp 16; Pulse Ox 99% ; bp 08:24 BP 164 / 78; Pulse 58; Resp 17; Pulse Ox 97% on R/A; rb3 09:18 BP 134 / 54; Pulse 50; Resp 16; Temp 98; Pulse Ox 100% ; bp 04:50 Body Mass Index 36.36 (81.65 kg, 149.86 cm) rr5 MDM: 07:33 Patient medically screened. rn 08:57 Differential diagnosis: cholecystitis, Cholelithiasis esophagitis, gastritis, rn gastroesophageal reflux disease (GERD), pancreatitis, peptic ulcer disease, pleurisy, pulmonary embolus, constipation, fatty liver, colitis, enteritis, non-specific abd pain. Data reviewed: vital signs, nurses notes, lab test result(s), EKG, radiologic studies, and as a result, I will discharge patient. 09:00 ED course: Pt signed out to me by Dr. Whalen with nonspecific abd pain, pending CT rn chest for PE as well as CT abdomen. No acute findings in bloodwork. CT's negative, no acute findings to explain symptoms. ECG unchanged from previous 2 ecg, and trop neg. Stable vitals, Will dc home with GI f/u as needed and return precautions. . 08/03 04:53 Order name: Basic Metabolic Panel; Complete Time: 05:56 mg2 08/03 04:53 Order name: CBC with Diff; Complete Time: 05:21 mg2 08/03 04:53 Order name: LFT's; Complete Time: 06:47 mg2 08/03 04:53 Order name: Magnesium; Complete Time: 06:47 mg2 08/03 04:53 Order name: NT PRO-BNP; Complete Time: 06:47 mg2 08/03 04:53 Order name: PT-INR; Complete Time: 05:21 mg2 08/03 04:53 Order name: Troponin (emerg Dept Use Only); Complete Time: 06:47 mg2 08/03 04:53 Order name: XRAY Chest (1 view); Complete Time: 08:55 mg2 08/03 05:22 Order name: Lipase [facility] 08/03 05:23 Order name: Lipase; Complete Time: 06:47 EDMS 08/03 06:48 Order name: CT Head Brain wo Cont; Complete Time: 08:55 7 08/03 06:48 Order name: CT Chest For PE Angio; Complete Time: 08:55 [facility] 08/03 06:48 Order name: CT Abd/Pelvis - IV Contrast Only; Complete Time: 08:55 7 08/03 04:53 Order name: EKG; Complete Time: 04:53 [facility] 08/03 04:53 Order name: Cardiac monitoring; Complete Time: 05:00 [facility] 08/03 04:53 Order name: EKG - Nurse/Tech; Complete Time: 05:00 [facility] 08/03 04:53 Order name: IV Saline Lock; Complete Time: 05:00 [facility] 08/03 04:53 Order name: Labs collected and sent; Complete Time: 05:00 [facility] 08/03 04:53 Order name: O2 Per Protocol; Complete Time: 05:00 mg2 08/03 04:53 Order name: O2 Sat Monitoring; Complete Time: 05:00 mg2 Administered Medications: 05:34 Drug: morphine 4 mg Route: IVP; Site: left forearm; mg2 06:41 Follow up: Response: No adverse reaction mg2 05:34 Drug: Zofran (Ondansetron) 4 mg Route: IVP; Site: right forearm; mg2 06:41 Follow up: Response: No adverse reaction mg2 Disposition: 08/03/20 09:03 Discharged to Home. Impression: Unspecified abdominal pain. - Condition is Stable. - Discharge Instructions: Abdominal Pain, Adult, Pain Without a Known Cause. - Medication Reconciliation Form, Thank You Letter, Antibiotic Education, Prescription Opioid Use form. - Follow up: Hakeem Ramos MD; When: As needed; Reason: Recheck today's complaints, Re-evaluation by your physician. - Problem is new. - Symptoms have improved. Signatures: Dispatcher [employer] EDMS Lincoln Carbone MD MD rn Miranda, Mitchell, YOUTH ACCOMMODATION SUPPORT WORKER-C YOUTH ACCOMMODATION SUPPORT WORKER-Cla1 Brandon Espinal RN RN bp Marco A Castillo RN RN [facility] Jaison Donato RN RN rr5 Sridhar Whalen MD MD 7 Corrections: (The following items were deleted from the chart) 09:20 09:03 08/03/2020 09:03 Discharged to Home. Impression: Unspecified abdominal pain. bp Condition is Stable. Forms are Medication Reconciliation Form, Thank You Letter, Antibiotic Education, Prescription Opioid Use. Follow up: Hakeem Ramos; When: As needed; Reason: Recheck today's complaints, Re-evaluation by your physician. Problem is new. Symptoms have improved. rn
--- NOTE | 2020-08-03 09:04 | ER ---
Nurse's Notes [facility] Name: Tyrese Alberto Age: 55 yrs Sex: Female : 1965 Arrival Date: 08/03/2020 Time: 04:52 Bed 4 Private MD: Diagnosis: Unspecified abdominal pain Presentation: 08/03 04:50 Chief complaint: EMS states: complaints of chest pain, started last night ( 8PM) rr5 headache,right side chest pain, abdominal pain started 4 days ago. 04:50 Coronavirus screen: Client denies travel out of the [place] in the last 14 days. Client rr5 reports previous positive COVID test result. Date of collection: March 2020. Ebola Screen: Patient negative for fever greater than or equal to 101.5 degrees Fahrenheit, and additional compatible Ebola Virus Disease symptoms Patient denies exposure to infectious person. Patient denies travel to an Ebola-affected area in the 21 days before illness onset. Initial Sepsis Screen: Does the patient meet any 2 criteria? No. Patient's initial sepsis screen is negative. Does the patient have a suspected source of infection? No. Patient's initial sepsis screen is negative. Risk Assessment: Do you want to hurt yourself or someone else? Patient reports no desire to harm self or others. Note has been diagnosed with blood clot on her right lower leg taking eliquis for it. Onset of symptoms was August 02, 2020 at 20:00. Care prior to arrival: Medication(s) given: ASA, adult aspirin 2 tablet. Care prior to arrival: V/S BP 200/100,200/110,176/115mmHg, HR 58 bpm, O2 sat 100%. 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 - Social history:: Smoking status: Patient reports the use of cigarette tobacco products, 4 sticks/day. Screenin:56 Abuse screen: Denies threats or abuse. Denies injuries from another. Nutritional mg2 screening: No deficits noted. Tuberculosis screening: No symptoms or risk factors identified. Fall Risk IV access (20 points). Assessment: 04:55 General: Appears in no apparent distress. comfortable, Behavior is calm, cooperative. mg2 Pain: Complains of pain in chest and back. Neuro: Level of Consciousness is awake, alert, obeys commands, Oriented to person, place, time, situation. Cardiovascular: Capillary refill < 3 seconds Patient's skin is warm and dry. Cardiovascular: Reports chest pain. Respiratory: Airway is patent Respiratory effort is even, unlabored, Respiratory pattern is regular, symmetrical. GI: No signs and/or symptoms were reported involving the gastrointestinal system. GI: Reports abdominal distention. : No signs and/or symptoms were reported regarding the genitourinary system. EENT: No signs and/or symptoms were reported regarding the EENT system. Derm: Skin is intact, is healthy with good turgor, Skin is pink, warm \T\ dry. normal. Musculoskeletal: Circulation, motion, and sensation intact. Capillary refill < 3 seconds. 06:00 Reassessment: Patient appears in no apparent distress at this time. Patient is alert, rr5 oriented x 3, equal unlabored respirations, skin warm/dry/pink. awaiting for results. 06:40 Reassessment: Patient appears in no apparent distress at this time. Patient and/or mg2 family updated on plan of care and expected duration. Pain level reassessed. Patient is alert, oriented x 3, equal unlabored respirations, skin warm/dry/pink. 07:00 Reassessment: RECD REPORT FROM SUNNY HUERTAS. 55YO BF P/W CHEST PAIN. CT PENDING. bp 07:03 General: Appears in no apparent distress. comfortable, Behavior is calm, cooperative. rb3 Pain: Complains of pain in back. Neuro: Level of Consciousness is awake, alert, obeys commands, Oriented to person, place, time, situation. 07:03 Respiratory: Airway is patent Respiratory effort is even, unlabored, Respiratory rb3 pattern is regular, symmetrical. Derm: Skin is dry, Skin is normal, Skin temperature is warm. 07:18 Reassessment: Pt. ambulated to the restroom. rb3 08:24 Reassessment: Patient appears in no apparent distress at this time. No changes from rb3 previously documented assessment. 09:18 Reassessment: PT D/C HOME AMBULATORY, DX WITH UNSPECIFIED ABDOMINAL PAIN. bp Vital Signs: 04:50 BP 186 / 88 LA; Pulse 50; Resp 18; Temp 97.5; Pulse Ox 97% on R/A; mg2 04:50 BP 182 / 77; Pulse 71; Resp 19; Temp 97.4; Pulse Ox 99% ; Weight 81.65 kg; Height 4 ft. rr5 11 in. (149.86 cm); Pain 8/10; 04:55 BP 182 / 77 RA; Pulse 52; Resp 18; Pulse Ox 97% on R/A; mg2 06:05 BP 164 / 110; Pulse 46; Resp 17; Pulse Ox 98% ; rr5 06:41 BP 164 / 101; Pulse 48; Resp 18; Pulse Ox 98% on R/A; mg2 07:25 BP 148 / 74; Pulse 73; Resp 16; Pulse Ox 99% ; bp 08:24 BP 164 / 78; Pulse 58; Resp 17; Pulse Ox 97% on R/A; rb3 09:18 BP 134 / 54; Pulse 50; Resp 16; Temp 98; Pulse Ox 100% ; bp 04:50 Body Mass Index 36.36 (81.65 kg, 149.86 cm) rr5 ED Course: 04:52 Patient arrived in ED. mg2 04:53 No provider procedures requiring assistance completed. Inserted saline lock: 20 gauge mg2 in left forearm, using aseptic technique. Blood collected. 04:53 Patient has correct armband on for positive identification. 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 Pulse mg2 ox on. NIBP on. 04:55 Arm band placed on right wrist. rr5 04:56 Sunny Donato, ALEKSANDAR is Primary Nurse. rr5 05:05 Triage completed. rr5 05:13 Sridhar Whalen MD is Attending Physician. mh7 05:47 XRAY Chest (1 view) In Process Unspecified. EDMS 07:16 Primary Nurse role handed off by Sunny Donato, ALEKSANDAR rb3 07:16 Adelina Haskins, RN is Primary Nurse. rb3 07:33 Attending Physician role handed off by Sridhar Whalen MD rn 07:33 Lincoln Carbone MD is Attending Physician. rn 07:49 CT Head Brain wo Cont In Process Unspecified. EDMS 08:08 CT Abd/Pelvis - IV Contrast Only In Process Unspecified. EDMS 08:09 CT Chest For PE Angio In Process Unspecified. EDMS 09:03 Hakeem Ramos MD is Referral Physician. rn 09:19 IV discontinued, intact, bleeding controlled, No redness/swelling at site. Pressure bp dressing applied. Administered Medications: 05:34 Drug: morphine 4 mg Route: IVP; Site: left forearm; mg2 06:41 Follow up: Response: No adverse reaction mg2 05:34 Drug: Zofran (Ondansetron) 4 mg Route: IVP; Site: right forearm; mg2 06:41 Follow up: Response: No adverse reaction mg2 Outcome: 09:03 Discharge ordered by . rn 09:19 Discharged to home ambulatory. bp 09:19 Condition: stable 09:19 Discharge instructions given to patient, Instructed on discharge instructions, follow up and referral plans. Demonstrated understanding of instructions, follow-up care. 09:20 Patient left the ED. bp Signatures: Dispatcher [employer] EDMS Lincoln Carbone MD MD rn Brandon Espinal, RN RN bp Marco A Castillo, RN RN mg2 Sunny Donato, ALEKSANDAR RN rr5 Sridhar Whalen MD MD mh7 Adelina Haskins, RN RN rb3 Corrections: (The following items were deleted from the chart) 07:19 07:18 Reassessment: Pt. ambulated to the restroom Patient denies pain at this time. rb3 rb3 07:26 07:00 Reassessment: RECD REPORT FROM SUNNY HUERTAS. 55YO BF P/W CHEST PAIN. ALL CURRENT bp ORDERS COMPLETE bp
[2020-08-03 10:08] VITALS: BP 134/54; TEMP 98; O2SAT 100
== END 2020-08-03 09:20 | disposition home or self-care (01) ==
LOC: ER 04:49
DX: R10.10 Upper abdominal pain, unspecified (principal); I10 Essential (primary) hypertension; E78.00 Pure hypercholesterolemia, unspecified; F17.210 Nicotine dependence, cigarettes, uncomplicated; Z79.01 Long term (current) use of anticoagulants
CPT/HCPCS: 85025; 80048; 36415; 83735; 85610; 80076; 84484; 83690; 83880; 70450; 71275; 74177; 71045; 99285; Q9967; J2405

== ENCOUNTER 2021-03-01 15:18 | Observation (INO) | payer OTHER ==
[2021-03-01 16:10] LABS: Absolute Lymphocytes (CBC) 3.1 K/uL (0.7-4.9); Basophils % 0.6 % (0-1.3); Hematocrit 38.5 % (36.0-45.0); Lymphocytes % 38.5 % (15.3-44.8); MPV 8.8 fL (7.6-11.3); RBC Red Blood Cell Count 4.28 M/uL (3.86-4.86)
[2021-03-01 16:11] LABS: Protime INR 1.23
[2021-03-01 16:26] LABS: ALT/SGPT 42 U/L (12-78); AST/SGOT 23 U/L (15-37); Albumin 3.6 g/dL (3.4-5.0); Alkaline Phosphatase 62 U/L (45-117); BUN Blood Urea Nitrogen 11 mg/dL (7-18); Bicarbonate 22 mmol/L (21-32); Bilirubin Direct < 0.1 mg/dL (0-0.2); Bilirubin Total 0.2 mg/dL (0.2-1.0); Glucose Level 97 mg/dL (74-106); Lipase 162 U/L (73-393); Magnesium 1.9 mg/dL (1.8-2.4); NT PRO-BNP 95 pg/mL (<125); Potassium 4.1 mmol/L (3.5-5.1); Protein, Total 7.7 g/dL (6.4-8.2); Sodium Level 142 mmol/L (136-145); Troponin (Emerg Dept Use Only) < 0.02 ng/mL (0.0-0.045)
[2021-03-01] MEDS ORDERED: MORPHINE 4 MG/ML SYR ONE (16:28)
[2021-03-01] MEDS ORDERED: ONDANSETRON 4 MG/2 ML VIAL ONE ×2 (16:28→18:13)
[2021-03-01] MEDS ORDERED: FAMOTIDINE 20 MG/2 ML VIAL IV ONE (16:29)
[2021-03-01] MEDS ORDERED: PIPER/TAZO/NS 3.375gm 3.375 GM/100 ML BAG ONE (17:01)
--- NOTE | 2021-03-01 17:02 | RAD REPORT ---
EXAM DESCRIPTION: CT - Abdomen Pelvis W Contrast - 03/01/2021 4:41 pm CLINICAL HISTORY: Abdominal pain COMPARISON: July 2020 TECHNIQUE: Computed axial tomography of the abdomen pelvis was obtained. 100 cc Isovue-300 was admin istered intravenously. Oral contrast was not requested which limits evaluation of bowel. All CT scans are performed using dose optimization technique as appropriate and may include automated exposure control or mA/KV adjustment according to patient size. FINDINGS: Fatty liver. Hepatic cysts. Spleen, pancreas, adrenal and kidneys appear unremarkable. There is no evidence of diverticulitis. Normal appendix IMPRESSION: No acute abnormality is displayed.
--- NOTE | 2021-03-01 17:03 | RAD REPORT ---
EXAM DESCRIPTION: US - Abdomen Exam Limited - 03/01/2021 4:28 pm CLINICAL HISTORY: Abdominal pain. COMPARISON: 2019 FINDINGS: The gallbladder wall is not thickened. A gallstone is not seen. The biliary tree is normal caliber. IMPRESSION: Unremarkable gallbladder ultrasound.
--- NOTE | 2021-03-01 17:04 | RAD REPORT ---
EXAM DESCRIPTION: [place] Single View03/01/2021 4:41 pm CLINICAL HISTORY: Chest pain COMPARISON: July 2020 FINDINGS: The lungs appear clear of acute infiltrate. The heart is normal size IMPRESSION: No acute abnormalities displayed
[2021-03-01 17:06] LABS: Urine Blood Negative (Negative); Urine Glucose Negative (Negative); Urine Protein Negative (Negative); Urine pH 5.5 (5.0-7.0)
--- NOTE | 2021-03-01 17:35 | ER ---
Nurse's Notes [facility] Name: Tyrese Alberto Age: 55 yrs Sex: Female : 1965 Arrival Date: 03/01/2021 Time: 15:19 Bed 30 Private MD: Diagnosis: Chest pain, unspecified-hx of DVT;Abdominal pain, Generalized;Other chronic pain Presentation: 03/01 15:23 Chief complaint: Patient states: chest pain, right arm pain, epigastric pain, and back aa5 pain that began yesterday and got worse today. Pt also reports hx of DVT to right leg and c/o right leg pain. Coronavirus screen: At this time, the client does not indicate any symptoms associated with coronavirus-19. Ebola Screen: Patient negative for fever greater than or equal to 101.5 degrees Fahrenheit, and additional compatible Ebola Virus Disease symptoms. Initial Sepsis Screen: Does the patient meet any 2 criteria? No. Patient's initial sepsis screen is negative. Does the patient have a suspected source of infection? No. Patient's initial sepsis screen is negative. Risk Assessment: Do you want to hurt yourself or someone else? Patient reports no desire to harm self or others. Onset of symptoms was February 2021. 15:23 Method Of Arrival: Ambulatory aa5 15:23 Acuity: SAGRARIO 2 aa5 Historical: - Allergies: 15:23 No Known Allergies; aa5 - PMHx: 15:23 blood clot leg; fatty liver; High Cholesterol; Hypertension; DVT; aa5 - Immunization history:: Client reports receiving the 2nd dose of the Covid vaccine. - Social history:: Smoking status: Patient reports the use of cigarette tobacco products. Vital Signs: 15:23 BP 160 / 82; Pulse 75; Resp 20 S; Temp 98.3(TE); Pulse Ox 99% ; Weight 77.11 kg (R); aa5 Height 4 ft. 11 in. (149.86 cm) (R); 15:23 Body Mass Index 34.34 (77.11 kg, 149.86 cm) aa5 ED Course: 15:19 Patient arrived in ED. am2 15:23 Arm band placed on. aa5 15:24 Triage completed. aa5 15:25 sponge packer on. Pulse ox on. NIBP on. aa5 15:27 EKG done, by ED staff, reviewed by Patricio Shaw MD. aa5 15:40 Patricio Shaw MD is Attending Physician. jenae 15:41 Janett Gutierres is Primary Nurse. aj2 16:00 Basic Metabolic Panel Sent. aj2 16:00 CBC with Diff Sent. aj2 16:00 LFT's Sent. aj2 16:00 Magnesium Sent. aj2 16:00 NT PRO-BNP Sent. aj2 16:00 PT-INR Sent. aj2 16:00 Troponin (emerg Dept Use Only) Sent. aj2 16:13 COVID-19 : Document "Date of Symptom Onset" if Symptomatic. Sent. aj2 16:28 US Abdomen Limited In Process Unspecified. EDMS 16:40 CT Abd/Pelvis - IV Contrast Only In Process Unspecified. EDMS 16:41 XRAY Chest (1 view) In Process Unspecified. EDMS 17:33 Jaison Carbone MD is Hospitalizing Provider. jenae 18:00 IV discontinued, intact, bleeding controlled, No redness/swelling at site. Pressure tr6 dressing applied. Administered Medications: 16:13 Drug: Pepcid (famotidine) 20 mg Route: IVP; Site: right hand; aj2 16:13 Drug: morphine 4 mg Route: IVP; Site: right hand; aj2 16:13 Drug: Zofran (Ondansetron) 4 mg Route: IVP; Site: right hand; aj2 17:38 CANCELLED (Patient Refused): Zosyn (piperacillin-tazobactam) 3.375 grams IVPB once over jenae 60 mins; (mix in NS 100 mL) 17:54 Not Given (Patient Refused): morphine 4 mg IVP once; RASS on ADMIN: Combtv4, Very aj2 Agttd3, Agttd2, Rstlss1, AlertClm0, Drwsy-1, Lt Sdtn-2, Mod Sdtn-3, Dp Sdtn-4, UnArsble-5 17:54 Not Given (Patient Refused): Zofran (Ondansetron) 4 mg IVP once; over 2 minutes aj2 17:54 Not Given (Patient Refused): Eliquis (apixaban) 5 mg PO once aj2 Outcome: 17:34 Decision to Hospitalize by Provider. jenae 17:59 AMA AMA form signed tr6 17:59 Condition: unchanged 17:59 Instructed on the need for admit, medication usage, safety practices, risks of leaving AMA discussed with pt by MD Shaw. pt verbalized understanding and will like to leave Demonstrated understanding of instructions, follow-up care. 18:03 Patient left the ED. iw Signatures: Dispatcher [employer] EDPatricio Rucker MD MD cha Williams, Irene RN RN iw Amelia Padgett RN RN aa5 Soha Li am2 Mahi Rodriguez RN RN tr6 Janett Gutierres aj2 Corrections: (The following items were deleted from the chart) 15:34 15:23 Acuity: SAGRARIO 3 aa5 aa5 17:05 16:49 Zosyn (piperacillin-tazobactam) 3.375 grams IVPB in right wrist over 60 mins aj2 aj2
--- NOTE | 2021-03-01 17:35 | EDPHYS ---
Physician Documentation [facility] Name: Tyrese Alberto Age: 55 yrs Sex: Female : 1965 Arrival Date: 03/01/2021 Time: 15:19 Bed 30 Private MD: CATHY Physician Patricio Shaw HPI: 03/01 15:42 This 55 yrs old Black Female presents to ER via Ambulatory with complaints of Chest jenae Pain, Epigastric Pain, Leg Pain, Back Pain, Headache. 15:42 The patient or guardian reports chest pain that is located primarily in the substernal jenae area, epigastric area. Onset: 1 day(s) ago. 15:43 The patient presents with abdominal pain abdominal distention in the upper abdomen, in jenae the lower abdomen. Onset: The symptoms/episode began/occurred 2 week(s) ago. The pain radiates to The symptoms radiate to Associated signs and symptoms: none. The symptoms are described as constant, crampy. Modifying factors: The symptoms are alleviated by nothing, the symptoms are aggravated by movement, pressure. Associated signs and symptoms: Pertinent positives: abdominal pain, shortness of breath. The chest pain is described as aching. Historical: - Allergies: 15:23 No Known Allergies; aa5 - PMHx: 15:23 blood clot leg; fatty liver; High Cholesterol; Hypertension; DVT; aa5 - Immunization history:: Client reports receiving the 2nd dose of the Covid vaccine. - Social history:: Smoking status: Patient reports the use of cigarette tobacco products. ROS: 15:44 Constitutional: Negative for fever, chills, and weight loss, Eyes: Negative for injury, jenae pain, redness, and discharge, ENT: Negative for injury, pain, and discharge, Neck: Negative for injury, pain, and swelling, Cardiovascular: Negative for chest pain, palpitations, and edema, Respiratory: Negative for shortness of breath, cough, wheezing, and pleuritic chest pain, Back: Negative for injury and pain, : Negative for injury, bleeding, discharge, and swelling, MS/Extremity: Negative for injury and deformity, Skin: Negative for injury, rash, and discoloration, Neuro: Negative for headache, weakness, numbness, tingling, and seizure, Psych: Negative for depression, anxiety, suicide ideation, homicidal ideation, and hallucinations, Allergy/Immunology: Negative for hives, rash, and allergies, Endocrine: Negative for neck swelling, polydipsia, polyuria, polyphagia, and marked weight changes, Hematologic/Lymphatic: Negative for swollen nodes, abnormal bleeding, and unusual bruising. 15:44 Abdomen/GI: Positive for abdominal pain, nausea, of the right upper quadrant, left upper quadrant, right lower quadrant and left lower quadrant. Exam: 15:44 Constitutional: This is a well developed, well nourished patient who is awake, alert, jenae and in no acute distress. Head/Face: Normocephalic, atraumatic. Eyes: Pupils equal round and reactive to light, extra-ocular motions intact. Lids and lashes normal. Conjunctiva and sclera are non-icteric and not injected. Cornea within normal limits. Periorbital areas with no swelling, redness, or edema. ENT: Nares patent. No nasal discharge, no septal abnormalities noted. Tympanic membranes are normal and external auditory canals are clear. Oropharynx with no redness, swelling, or masses, exudates, or evidence of obstruction, uvula midline. Mucous membranes moist. Neck: Trachea midline, no thyromegaly or masses palpated, and no cervical lymphadenopathy. Supple, full range of motion without nuchal rigidity, or vertebral point tenderness. No Meningismus. Chest/axilla: Normal chest wall appearance and motion. Nontender with no deformity. No lesions are appreciated. Cardiovascular: Regular rate and rhythm with a normal S1 and S2. No gallops, murmurs, or rubs. Normal PMI, no JVD. No pulse deficits. Respiratory: Lungs have equal breath sounds bilaterally, clear to auscultation and percussion. No rales, rhonchi or wheezes noted. No increased work of breathing, no retractions or nasal flaring. Back: No spinal tenderness. No costovertebral tenderness. Full range of motion. Skin: Warm, dry with normal turgor. Normal color with no rashes, no lesions, and no evidence of cellulitis. MS/ Extremity: Pulses equal, no cyanosis. Neurovascular intact. Full, normal range of motion. Neuro: Awake and alert, GCS 15, oriented to person, place, time, and situation. Cranial nerves II-XII grossly intact. Motor strength 5/5 in all extremities. Sensory grossly intact. Cerebellar exam normal. Normal gait. Psych: Awake, alert, with orientation to person, place and time. Behavior, mood, and affect are within normal limits. 15:44 ECG was reviewed by the Attending Physician. 15:44 Abdomen/GI: Inspection: distension, Bowel sounds: active, Palpation: moderate abdominal tenderness, in the right upper quadrant and left upper quadrant, Liver: no appreciated palpable abnormalities, Hernia: not appreciated. Vital Signs: 15:23 BP 160 / 82; Pulse 75; Resp 20 S; Temp 98.3(TE); Pulse Ox 99% ; Weight 77.11 kg (R); aa5 Height 4 ft. 11 in. (149.86 cm) (R); 15:23 Body Mass Index 34.34 (77.11 kg, 149.86 cm) aa5 MDM: 15:46 Differential diagnosis: abnormal EKG, acute myocardial infarction, anxiety, coronary jenae artery disease cholecystitis, Cholelithiasis hiatal hernia, pancreatitis, pulmonary embolus, unstable angina, bowel obstruction. HEART Score: History: Moderately Suspicious (1), ECG: Non specific repolarization disturbance / LBTB / PM (1), Age: > 45 and < 65 years (1), Risk Factors: > or = 3 Risk factors for atherosclerotic disease (2), [Hypercholesterolemia] [Hypertension] [+ Family HX] [Obesity] Troponin: < or = 1 x Normal Limit (0). The patient was given aspirin in the Emergency Department. The patient's deep vein thrombosis risk score was calculated as follows: Total Score: 0. This patient was found to be at low risk for a deep vein thrombosis by using the Well's assessment criteria. The patient's pulmonary embolism risk score was calculated as follows: the patient has a history of a previous deep vein thrombosis or pulmonary embolism (1.5 Pts) Total Score: 0-2 points. This patient was found to be at low risk for a pulmonary embolism by using the Well's assessment criteria. VARUN Risk Score: 1 - Three or more CAD risk factors, TOTAL SCORE = 1. Data reviewed: vital signs, nurses notes, lab test result(s), EKG, radiologic studies, plain films. Data interpreted: library monitor: rate is 77 beats/min, rhythm is regular, Pulse oximetry: on room air is 99 %. Test interpretation: by ED physician or midlevel provider: ECG, plain radiologic studies. Counseling: I had a detailed discussion with the patient and/or guardian regarding: the historical points, exam findings, and any diagnostic results supporting the discharge/admit diagnosis, the presence of at least one elevated blood pressure reading (>120/80) during this emergency department visit, lab results, radiology results, the need for further work-up and treatment in the hospital. 15:55 Patient medically screened. [facility] 03/01 15:42 Order name: Basic Metabolic Panel; Complete Time: 17:12 [facility] 03/01 15:42 Order name: CBC with Diff; Complete Time: 17:12 [facility] 03/01 15:42 Order name: LFT's; Complete Time: 17:12 [facility] 03/01 15:42 Order name: Magnesium; Complete Time: 17:12 [facility] 03/01 15:42 Order name: NT PRO-BNP; Complete Time: 17:12 [facility] 03/01 15:42 Order name: PT-INR; Complete Time: 17:12 [facility] 03/01 15:42 Order name: Troponin (emerg Dept Use Only); Complete Time: 17:12 [facility] 03/01 15:42 Order name: XRAY Chest (1 view); Complete Time: 17:12 [facility] 03/01 15:42 Order name: Lipase; Complete Time: 17:12 [facility] 03/01 15:42 Order name: CT Abd/Pelvis - IV Contrast Only; Complete Time: 17:12 [facility] 03/01 15:42 Order name: Urine Culture [facility] 03/01 15:42 Order name: COVID-19 : Document "Date of Symptom Onset" if Symptomatic. [facility] 03/01 15:44 Order name: US Abdomen Limited; Complete Time: 17:12 [facility] 03/01 17:05 Order name: Urine Dipstick-Ancillary; Complete Time: 17:12 [facility] 03/01 15:42 Order name: EKG; Complete Time: 15:43 [facility] 03/01 15:42 Order name: Cardiac monitoring; Complete Time: 16:00 [facility] 03/01 15:42 Order name: EKG - Nurse/Tech; Complete Time: 16:08 [facility] 03/01 15:42 Order name: IV Saline Lock; Complete Time: 16:00 [facility] 03/01 15:42 Order name: Labs collected and sent; Complete Time: 15:59 [facility] 03/01 15:42 Order name: O2 Per Protocol; Complete Time: 16:00 [facility] 03/01 15:42 Order name: O2 Sat Monitoring; Complete Time: 16:00 [facility] 03/01 15:42 Order name: Urine Dipstick-Ancillary (obtain specimen) [facility] 03/01 17:27 Order name: CONS Physician Consult EDMS EC:44 Rate is 77 beats/min. Rhythm is regular. QRS [employer] is Normal. LA interval is normal. QRS jenae interval is normal. QT interval is normal. No Q waves. T waves are Normal. ST Segment is depressed in leads II, III, aVF, V4, V5, V6. Interpreted by me. Reviewed by me. Administered Medications: 16:13 Drug: Pepcid (famotidine) 20 mg Route: IVP; Site: right hand; aj2 16:13 Drug: morphine 4 mg Route: IVP; Site: right hand; aj2 16:13 Drug: Zofran (Ondansetron) 4 mg Route: IVP; Site: right hand; aj2 17:38 CANCELLED (Patient Refused): Zosyn (piperacillin-tazobactam) 3.375 grams IVPB once over jeane 60 mins; (mix in NS 100 mL) 17:54 Not Given (Patient Refused): morphine 4 mg IVP once; RASS on ADMIN: Combtv4, Very aj2 Agttd3, Agttd2, Rstlss1, AlertClm0, Drwsy-1, Lt Sdtn-2, Mod Sdtn-3, Dp Sdtn-4, UnArsble-5 17:54 Not Given (Patient Refused): Zofran (Ondansetron) 4 mg IVP once; over 2 minutes aj2 17:54 Not Given (Patient Refused): Eliquis (apixaban) 5 mg PO once aj2 Disposition Summary: 03/01/21 17:57 Left Against Medical Advice Location: Home(03/01/21 17:57) jenae Problem: new(03/01/21 17:57) jenae Symptoms: are unchanged(03/01/21 17:57) jenae Condition: Serious(03/01/21 17:57) jenae Diagnosis - Chest pain, unspecified - hx of DVT(03/01/21 17:57) jenae - Abdominal pain, Generalized jenae - Other chronic pain(03/01/21 17:57) jenae Followup: jenae - With: Private Physician - When: Upon discharge from the Emergency Department - Reason: Recheck today's complaints, Continuance of care, Re-evaluation by your physician Signatures: Dispatcher [employer] EDPatricio Rucker MD MD cha Calderon, Audri, RN RN aa5 Janett Gutierres aj2 Corrections: (The following items were deleted from the chart) 17:38 15:44 Zosyn (piperacillin-tazobactam) 3.375 grams IVPB once over 60 mins; (mix in NS jenae 100 mL) ordered. jenae 17:38 16:49 Zosyn (piperacillin-tazobactam) 3.375 grams IVPB once over 60 mins; (mix in NS jenae 100 mL) given. aj2 17:38 17:05 Zosyn (piperacillin-tazobactam) 3.375 grams IVPB once over 60 mins; (mix in NS jenae 100 mL) ordered. aj2 17:50 17:34 Chest pain, unspecified jenae jenae 17:54 17:34 Observation jenae jenae 17:54 17:34 CarboneJaison vega jenae jenae 17:54 17:34 Telemetry/MedSurg (observation) jenae jenae 17:54 17:34 Fair jenae jenae 17:54 17:34 new jenae jenae 17:54 17:34 have improved jenae jenae 17:54 17:34 Standard jenae jenae 17:54 17:34 jenae jenae 17:54 17:34 Abdominal tenderness jenae jenae 17:54 17:34 Obesity, unspecified jenae jenae 17:54 17:50 Chest pain, unspecified - hx of dvt/pe jenae jenae 17:54 17:50 Other chronic pain - abdominal pain , legs jenae jenae
[2021-03-01 18:07] VITALS: BP 160/82; TEMP 98.3; O2SAT 99
[2021-03-01] MEDS ORDERED: APIXABAN 5 MG TABLET ONE ×2 (18:14→18:15)
== END 2021-03-01 18:03 | disposition left against medical advice (07) ==
LOC: ER 15:18 → ERHOLD 17:24
PROVIDERS: ADMIT Hospitalist; ATTEND Hospitalist
DX: R07.9 Chest pain, unspecified (principal); Z53.29 Procedure and treatment not carried out because of patient's decision for other reasons; R10.9 Unspecified abdominal pain; G89.29 Other chronic pain; I10 Essential (primary) hypertension; K76.0 Fatty (change of) liver, not elsewhere classified; E78.00 Pure hypercholesterolemia, unspecified; F17.210 Nicotine dependence, cigarettes, uncomplicated; Z86.718 Personal history of other venous thrombosis and embolism; Z20.822 Contact with and (suspected) exposure to COVID-19
CPT/HCPCS: 93005; 87088; 85025; 87086; 80048; 36415; 83735; 85610; 80076; 81003; 84484; 83690; 83880; 74177; 71045; 76705; 96375; 96374; 99284; U0003; Q9967; J2543; J2405 ×2; G0378